=== PATIENT | female | born 1930 | race Caucasian/White ===

== ENCOUNTER 2016-07-06 16:41 | Inpatient (IN) | payer MEDICARE, BC ==
--- NOTE | 2016-07-06 17:03 | ED ---
GI Bleed HPI - General Stated complaint: GI Bleed Time Seen by Provider: 07/06/16 16:44 - History of Present Illness Initial comments: 85-year-old female patient presents as a transfer from [facility]. Patient presented to [facility] for complaints of weakness that had been progressively getting worse over the last week or 2. Patient states that she also noticed she was having dark stools for the last week. Patient states she did have an episode of dark stools a couple of years ago but it only lasted a couple of days. Patient denies ever having an evaluation for that, or having to receive blood transfusions. Patient states that she has been short of breath with this as well. Patient denies any abdominal pain, nausea, vomiting, constipation, or diarrhea. Patient denies any bright red blood per rectum. At [facility] patient was found to have a hemoglobin of 9.5, positive occult blood, and a lactic acid 3.5. INR is 5.07. - Related Data Home Medications Medication Instructions Recorded Confirmed Doxepin HCl [SINEquan] 50 mg PO HS 11/04/14 11/28/14 Lisinopril [Zestril] 2.5 mg PO DAILY 11/04/14 11/28/14 Metoprolol Tartrate [Lopressor] 50 mg PO TID 11/04/14 11/28/14 Nitroglycerin Sl Tabs [Nitrostat] 0.4 mg SL Q5M PRN 11/04/14 11/28/14 Simvastatin [Zocor] 40 mg PO QAM 11/04/14 11/28/14 Vitamin B Complex 1 tab PO DAILY@1200 11/04/14 11/28/14 Acetaminophen [Tylenol] 650 mg PO Q6H PRN 11/28/14 11/28/14 Previous Rx's Medication Instructions Recorded Dabigatran [Pradaxa] 150 mg PO BID #60 cap 11/12/14 Folic Acid 1 mg PO DAILY@1200 #30 tab 11/12/14 Thiamine [Vitamin B-1] 100 mg PO DAILY@1200 #30 tab 11/12/14 Aspirin EC [Ecotrin Low Dose] 81 mg PO DAILY #30 tablet. 11/29/14 Bumetanide [BUMEX] 1 mg PO DAILY #30 tab 11/29/14 Allergies Allergy/AdvReac Type Severity Reaction Status Date / Time Penicillins AdvReac Swelling Verified 07/06/16 16:53 Review of Systems ROS Statement: Those systems with pertinent positive or pertinent negative responses have been documented in the HPI. ROS Other: All systems not noted in ROS Statement are negative. Past Medical History Past Medical History: Atrial Flutter, Coronary Artery Disease (CAD), Chest Pain / Angina, Heart Failure, CVA/TIA, GERD/Reflux, Hearing Disorder / Deafness, Hyperlipidemia, Hypertension, Myocardial Infarction (AZ), Pulmonary Embolus (PE) Additional Past Medical History / Comment(s): 11/16/2012 [place] cath with stent, hard of hearing-wears bilat hearing aids, DIVERTICULOSIS, FALLS, UTI, RBBB, EPISTAXIS , FALLS,CKD. Last Myocardial Infarction Date:: 2012 History of Any Multi-Drug Resistant Organisms: None Reported Past Surgical History: Cholecystectomy, Heart Catheterization With Stent, Hysterectomy Additional Past Surgical History / Comment(s): IVC FILTER , JANNA CATARACTS. Past Anesthesia/Blood Transfusion Reactions: No Reported Reaction Date of Last Stent Placement:: 2012 Past Psychological History: No Psychological Hx Reported Additional Psychological History / Comment(s): PT IS ALERT AND ORIENTATED X3. LIVES WITH DAUGHTER. PT AMBULATES USING WALKER AND DAUGHTER ASSISTS PT WITH SHOWERS. 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 Smoking Status: Former smoker Past Alcohol Use History: None Reported Additional Past Alcohol Use History / Comment(s): STARTED SMOKING AT AGE 23 SMOKED 1PPD , QUIT MAY-1999. Past Drug Use History: None Reported - Past Family History Father Additional Family Medical History / Comment(s): heart issues Mother Additional Family Medical History / Comment(s): unknown Brother(s) Additional Family Medical History / Comment(s): heart surgery Daughter(s) History Unknown: Yes Family Medical History: No Reported History Son(s) Family Medical History: Diabetes Mellitus Course Vital Signs 07/06/16 16:53 Temperature 96.8 F L Pulse Rate 98 Respiratory 16 Rate Blood Pressure 122/64 O2 Sat by Pulse 99 Oximetry Medical Decision Making - Medical Decision Making 85-year-old female patient presented to emergency as a transfer from [facility] for GI bleed. Patient was found to have a positive occult blood , hemoglobin of 9.5, INR 5.07. CT report reviewed from [facility] which revealed diverticulosis without diverticulitis. Labs were reviewed. Repeat CBC and lactic acid were obtained and revealed a hemoglobin of 8.5 and lactic of 1.3. She'll be admitted for further evaluation. - Lab Data Result diagrams: 07/06/16 17:10 Lab Results 07/06/16 07/06/16 Range/Units 17:10 17:10 WBC 10.4 (3.8-10.6) k/uL RBC 2.64 L (3.80-5.40) m/uL Hgb 8.5 L (11.4-16.0) gm/dL Hct 26.4 L (34.0-46.0) % MCV 100.1 H (80.0-100.0) fL MCH 32.1 (25.0-35.0) pg MCHC 32.1 (31.0-37.0) g/dL RDW 15.6 H (11.5-15.5) % Plt Count 214 (150-450) k/uL Neutrophils % 86 % Lymphocytes % 9 % Monocytes % 3 % Eosinophils % 0 % Basophils % 0 % Neutrophils # 8.9 H (1.3-7.7) k/uL Lymphocytes # 0.9 L (1.0-4.8) k/uL Monocytes # 0.3 (0-1.0) k/uL Eosinophils # 0.0 (0-0.7) k/uL Basophils # 0.0 (0-0.2) k/uL Macrocytosis Slight Plasma Lactic Acid Quan 1.3 (0.7-2.0) mmol/L Disposition Clinical Impression: GI bleed Disposition: ADMITTED IP TO THIS [facility] Condition: Fair Decision to Admit Reason: Admit from EC Decision Date: 07/06/16 Decision Time: 17:59
[2016-07-06 17:22] LABS: Basophils % (A) 0 %; CHCM 32.2; Eosinophils % (A) 0 %; HCT 26.4 % (34.0-46.0); HDW 2.92; HGB 8.5 gm/dL (11.4-16.0); Luc # (Auto) 0.17; Luc % (Auto) 2; Lymphocytes # (A) 0.9 k/uL (1.0-4.8); Lymphocytes % (A) 9 %; MCH 32.1 pg (25.0-35.0); MCHC 32.1 g/dL (31.0-37.0); MCV 100.1 fL (80.0-100.0); Macrocytosis Slight; Mean Platelet Volume 9.2; Monocytes # (A) 0.3 k/uL (0-1.0); Monocytes % (A) 3 %; Neutrophils # (A) 8.9 k/uL (1.3-7.7); Neutrophils % (A) 86 %; RBC 2.64 m/uL (3.80-5.40); RDW 15.6 % (11.5-15.5); WBC 10.4 k/uL (3.8-10.6)
[2016-07-06] MEDS ORDERED: ONDANSETRON 4 MG/2 ML VIAL IVP STA (17:36)
[2016-07-06] MEDS ORDERED: MORPHINE SULFATE 4 MG/ML SYRINGE IVP STA (17:36)
[2016-07-06] MEDS ORDERED: ONDANSETRON 4 MG/2 ML VIAL IVP PRN (17:59)
[2016-07-06] MEDS ORDERED: NALOXONE 0.4 MG/ML 1 ML VIAL IV PRN (17:59)
[2016-07-06 19:12] LABS: Basophils % (A) 0 %; CH 31.6; CHCM 31.3; Eosinophils % (A) 0 %; HDW 2.96; HGB 8.4 gm/dL (11.4-16.0); Hypochromasia Slight; Luc # (Auto) 0.22; Luc % (Auto) 2; Lymphocytes # (A) 1.2 k/uL (1.0-4.8); Lymphocytes % (A) 11 %; MCH 31.8 pg (25.0-35.0); MCHC 31.3 g/dL (31.0-37.0); MCV 101.6 fL (80.0-100.0); Macrocytosis Slight; Mean Platelet Volume 8.9; Monocytes # (A) 0.4 k/uL (0-1.0); Monocytes % (A) 3 %; Neutrophils % (A) 83 %; RBC 2.65 m/uL (3.80-5.40); RDW 15.7 % (11.5-15.5); WBC 10.8 k/uL (3.8-10.6); WBC (Perox) 11.63
[2016-07-06 20:04] VITALS: BMI 24.3
[2016-07-06] MEDS: MORPHINE SULFATE 4 MG/ML SYRINGE IV PRN (20:58)
[2016-07-06] MEDS: SODIUM CHLORIDE 0.9% 1,000 ML IV SCH (22:29)
[2016-07-06] MEDS ORDERED: ACETAMINOPHEN TAB 500 MG TAB PO PRN (23:12)
[2016-07-06] MEDS ORDERED: ALPRAZolam 0.25 MG TAB PO PRN (23:12)
[2016-07-07 01:34] LABS: Anisocytosis Slight; Basophils % (A) 0 %; CH 31.6; CHCM 31.6; Eosinophils % (A) 0 %; HCT 23.2 % (34.0-46.0); HDW 2.99; HGB 7.3 gm/dL (11.4-16.0); Hypochromasia Slight; Luc # (Auto) 0.18; Luc % (Auto) 2; Lymphocytes # (A) 1.1 k/uL (1.0-4.8); Lymphocytes % (A) 13 %; MCH 31.9 pg (25.0-35.0); MCHC 31.6 g/dL (31.0-37.0); Macrocytosis Slight; Mean Platelet Volume 8.7; Monocytes # (A) 0.6 k/uL (0-1.0); Monocytes % (A) 7 %; Neutrophils # (A) 6.4 k/uL (1.3-7.7); Neutrophils % (A) 77 %; RDW 16.2 % (11.5-15.5); WBC 8.3 k/uL (3.8-10.6); WBC (Perox) 8.46
[2016-07-07] MEDS: MORPHINE SULFATE 4 MG/ML SYRINGE IV PRN ×2 (03:41→10:46)
[2016-07-07 03:46] LABS: Appearance,Urine Clear (Clear); Bacteria,Urine Many /hpf; Bilirubin,Urine Negative (Negative); Glucose,Urine (UA) Negative (Negative); Ketones,Urine Negative (Negative); Leukocyte Esterase,Urine Small (Negative); Mucus,Urine Many /hpf; Nitrite,Urine Positive (Negative); PH, Urine 5.5 (5.0-8.0); Particle Count 3602; Protein,Urine Negative (Negative); Specific Gravity,Urine 1.013 (1.001-1.035); UA Billing (MACRO vs. MICRO) MICRO; Urobilinogen,Urine <2.0 mg/dL (<2.0); WBC,Urine 8 /hpf (0-5)
[2016-07-07] MEDS: PANTOPRAZOLE 40 MG/10 ML VIAL IVP SCH (07:58)
[2016-07-07] MEDS: SODIUM CHLORIDE 0.9% 1,000 ML IV SCH (08:05)
--- NOTE | 2016-07-07 08:18 | XR ---
EXAMINATION TYPE: XR chest 1V portable DATE OF EXAM: 07/07/2016 8:10 AM HISTORY: chf. REFERENCE: Previous study dated 11/29/2014. FINDINGS: The heart is enlarged. The lungs are overinflated. There is chronic interstitial change. A definite superimposed pneumonia is not seen. IMPRESSION: 1. COPD. 2. CARDIOMEGALY. 3. CHRONIC INTERSTITIAL FIBROSIS.
[2016-07-07 08:46] LABS: Anisocytosis Slight; Basophils # (A) 0.1 k/uL (0-0.2); Basophils % (A) 0 %; CH 31.6; Eosinophils % (A) 0 %; HCT 22.4 % (34.0-46.0); Hypochromasia Moderate; Luc # (Auto) 0.31; Luc % (Auto) 3; Lymphocytes # (A) 2.3 k/uL (1.0-4.8); Lymphocytes % (A) 21 %; MCH 31.6 pg (25.0-35.0); MCHC 30.8 g/dL (31.0-37.0); MCV 102.7 fL (80.0-100.0); Macrocytosis Moderate; Mean Platelet Volume 8.8; Monocytes # (A) 0.8 k/uL (0-1.0); Monocytes % (A) 7 %; Neutrophils # (A) 7.7 k/uL (1.3-7.7); Neutrophils % (A) 69 %; RBC 2.18 m/uL (3.80-5.40); RDW 16.7 % (11.5-15.5); WBC 11.1 k/uL (3.8-10.6); WBC (Perox) 11.99
[2016-07-07 08:55] LABS: Calcium 8.4 mg/dL (8.4-10.2); HGB 6.9 gm/dL (11.4-16.0); Potassium 4.1 mmol/L (3.5-5.1)
[2016-07-07] MEDS ORDERED: FUROSEMIDE 10 MG/ML 2 ML VIAL IV ONE (10:57)
--- NOTE | 2016-07-07 11:03 | HP ---
DATE OF ADMISSION: 07/06/2016 CHIEF COMPLAINT: Gastrointestinal bleed. HISTORY OF PRESENT ILLNESS: This 85 -year-old woman with a past medical history of multiple medical problems including atrial flutter, coronary artery disease, history of chest pain, history of CHF, history of CVA, TIA, history of GERD, history of hearing disorder, deafness, hypertension, hyperlipidemia, history of myocardial infarction, history of pulmonary embolism, being followed by Dr. Sheldon in the outpatient setting, apparently living with daughter. Patient apparently has lower GI bleeding for the last one week. Patient presented to [facility] with GI bleeding. The patient was noted to have black tarry stools. CT scan showed only diverticulosis. continue bleed. The patient was sent to [facility] and admitted for further evaluation and treatment. Two hemoglobin values 8.5 and 8.4. There is no history of fever, rigors or chills. No history of headache, loss of consciousness. No abdominal pain, nausea, vomiting, diarrhea, hematochezia at this time. PAST MEDICAL HISTORY: History of atrial flutter, history of coronary artery disease, history of CHF, CVA, TIA, GERD , hearing disorder, deafness, hypertension, hyperlipidemia, history of myocardial infarction, history of pulmonary embolism. MEDICATIONS PRIOR TO ADMISSION: 1. Vitamin B complex 100 mg p.o. daily. 2. Thiamine 100 mg p.o. daily. 3. Simvastatin 40 mg in the morning. . 4. Nitro 0.4 sublingual p.r.n. 5. Metoprolol 50 mg p.o. t.i.d. 6. Zestril 2.5 mg p.o. daily. 7. Folic acid 1 mg daily. 8. Doxepin 50 mg q.h.s. 9. Pradaxa 150 mg p.o. b.i.d. 10. Bumex 1 mg p.o. daily. 11. Aspirin 81 mg. 12. Tylenol 650 q.6 p.r.n. ALLERGIES: PENICILLIN. FAMILY HISTORY: History of heart disease in the family. SOCIAL HISTORY: Previous history of smoking. No history of current smoking or alcohol intake. REVIEW OF SYSTEMS: ENT: Diminished vision, diminished hearing. CARDIOVASCULAR: No angina or palpitations. RESPIRATORY: No cough or hemoptysis. GI: As mentioned earlier. : No dysuria, or retention. CENTRAL NERVOUS SYSTEM: As mentioned earlier. allergy/immunology: No asthma or hayfever. MUSCULOSKELETAL: As mentioned earlier. HEMATOLOGY/ONCOLOGY: No history of anemia. ENDOCRINE: No history of diabetes or hypothyroidism. CONSTITUTIONAL: As mentioned earlier. DERMATOLOGY: Negative. RHEUMATOLOGY: negative. PSYCHIATRY: As mentioned earlier. PHYSICAL EXAMINATION: Patient is alert and oriented x3. Pulse is 103, blood pressure 107/66, respirations 17, temperature 97.5, pulse ox 95% on 3 L. HEENT: Conjunctivae pale. Oral mucosa moist. NECK: No jugular venous distention. No carotid bruit. No lymph node enlargement. CARDIOVASCULAR: S1, S2 muffled. No S3, no S4. RESPIRATORY: Breath sounds diminished in the bases. A few rhonchi. No crackles. ABDOMEN: Soft, nontender. No mass palpable. LEGS: No edema. No swelling. CENTRAL NERVOUS SYSTEM: Higher functions as mentioned earlier. Moves all four limbs. No focal motor or sensory deficits. LYMPHATICS: No lymph nodes palpable in the neck, axillae or groin. SKIN: No ulcer, rash or bleeding. LABS: WBC 10.2, hemoglobin 8.7, MCV 101.6. ASSESSMENT: 1. Acute lower gastrointestinal bleeding with acute blood loss anemia. Possible secondary to diverticulosis. 2. Congestive heart failure with chronic systolic dysfunction, ejection fraction 40% to 45%. 3. Increased MCV. 4. Increased WBC. 5. History of atrial flutter. 6. Coronary artery disease history. 7. History of congestive heart failure. 8. History of cerebrovascular accident, transient ischemic attack. 9. History of gastroesophageal reflux disease. 10. Hard of hearing. 11. Hypertension. 12. Hyperlipidemia. 13. History of myocardial infarction. 14. History of pulmonary embolism. 15. History of coronary artery disease and stent. 16. History of diverticulosis. 17. History of epistaxis. 18. Right bundle branch block on the EKG. 19. History of cataracts. 20. IVC filter. 21. Gait dysfunction. 22. FULL CODE. RECOMMENDATIONS AND DISCUSSION: In this 85-year-old woman who presented with multiple complex medical issues, we will monitor the patient closely. Continue with the current medications. Continue symptomatic treatment. Otherwise, at this time, I would recommend we will monitor hemoglobin closely, hold antiplatelet and Pradaxa. Otherwise, I would also recommend a cardiology consultation and Hematology consultation also. Other than that, gastroenterology will be consulted for evaluation with possible endoscopy. Guarded prognosis because of multiple complex medical issues. Further recommendations to follow. A copy of dictation being forwarded to Dr. Sheldon who is the primary care physician. We will resume the other the home medications as well. JUDY
[2016-07-07 15:05] LABS: Anisocytosis Slight; Basophils % (A) 0 %; CH 31.2; CHCM 32.5; Eosinophils % (A) 0 %; HCT 29.8 % (34.0-46.0); HDW 3.51; Hypochromasia Slight; Luc # (Auto) 0.13; Luc % (Auto) 1; Lymphocytes # (A) 0.9 k/uL (1.0-4.8); Lymphocytes % (A) 8 %; MCH 32.2 pg (25.0-35.0); MCHC 33.2 g/dL (31.0-37.0); Macrocytosis Slight; Monocytes # (A) 0.5 k/uL (0-1.0); Monocytes % (A) 5 %; Neutrophils # (A) 9.5 k/uL (1.3-7.7); Neutrophils % (A) 86 %; Poikilocytosis Slight; RBC 3.07 m/uL (3.80-5.40); RDW 16.7 % (11.5-15.5); WBC 11.1 k/uL (3.8-10.6); WBC (Perox) 10.58
[2016-07-07 15:16] LABS: HGB 9.9 gm/dL (11.4-16.0)
[2016-07-07] MEDS ORDERED: LEVOFLOXACIN 500MG-D5W PMX 500 MG in DEXTROSE/WATER 1 100ML.BAG IVPB SCH (17:00)
--- NOTE | 2016-07-07 17:00 | P.CONS ---
History of Present Illness - Reason for Consult Consult date: 07/07/16 GI bleeding, on anticoagulation for PE Requesting physician: Richard Hollins - Chief Complaint progressive weakness and dark stool, transfer, coagulopathy - History of Present Illness Ms. Condon is a pleasant female initially seen in consult at [facility] . She was transferred from [facility] with c/o not feeling well for 2-3 days, ESTEVAN and chest discomfort. VQ scan was read as high probability for PE in the right lung, BLE doppler negative for DVT. Pt was already on Pradaxa for a-fib. She was seen by Pulmonary and IM and IVC filter was recommended due to concerns about failure of anticoagulation. The pt was actually taking half the recommended full anticoagulant dose ast the time of the PE so Dr. Chris recommended increase to treatment dose Pradaxa 150 mg PO BID. There was no provoking factor so CT AP was done to rule out occult malignancy as underlying cause, follow up US was done for a concerning left renal mass that did not appear to be a simple cyst, hypercoag work up was negative. The pt was seen for her 1st OV on 12/06/14. She was referred to Urology for renal mass and advised to f/u wp with PCP for monitoring of renal function while on predaxa. Pt transferred for [facility] where she was seen for progressive weakness x 1-2 weeks and dark stools, hemocult was positive and Hgb was 8.5 on admit, dropped to 6.8, pt is s/p 2 units of PRBCs with Hgb 9.9. Pt denied fevers, any other visible bleeding, no nausea, vomiting, abd pain, cramping. Review of Systems ROS unobtainable: due to mental status All systems: negative Constitutional: Reports as per HPI Past Medical History Past Medical History: Atrial Flutter, Coronary Artery Disease (CAD), Chest Pain / Angina, Heart Failure, CVA/TIA, GERD/Reflux, Hearing Disorder / Deafness, Hyperlipidemia, Hypertension, Myocardial Infarction (AZ), Pulmonary Embolus (PE) Additional Past Medical History / Comment(s): 11/16/2012 [place] cath with stent, hard of hearing-wears bilat hearing aids, DIVERTICULOSIS, FALLS, UTI, RBBB, EPISTAXIS , FALLS,CKD. Last Myocardial Infarction Date:: 2012 History of Any Multi-Drug Resistant Organisms: None Reported Past Surgical History: Cholecystectomy, Heart Catheterization With Stent, Hysterectomy Additional Past Surgical History / Comment(s): IVC FILTER , JANNA CATARACTS. Past Anesthesia/Blood Transfusion Reactions: No Reported Reaction Date of Last Stent Placement:: 2012 Past Psychological History: No Psychological Hx Reported Additional Psychological History / Comment(s): PT IS ALERT AND ORIENTATED X3. LIVES WITH DAUGHTER. PT AMBULATES USING WALKER AND DAUGHTER ASSISTS PT WITH SHOWERS. 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 Smoking Status: Former smoker Past Alcohol Use History: None Reported Additional Past Alcohol Use History / Comment(s): STARTED SMOKING AT AGE 23 SMOKED 1PPD , QUIT MAY-1999. Past Drug Use History: None Reported - Past Family History Father Additional Family Medical History / Comment(s): heart issues Mother Additional Family Medical History / Comment(s): unknown Brother(s) Additional Family Medical History / Comment(s): heart surgery Daughter(s) History Unknown: Yes Family Medical History: No Reported History Son(s) Family Medical History: Diabetes Mellitus Medications and Allergies Home Medications Medication Instructions Recorded Confirmed Type Doxepin HCl [SINEquan] 50 mg PO HS 11/04/14 07/07/16 History Lisinopril [Zestril] 2.5 mg PO DAILY 11/04/14 07/07/16 History Metoprolol Tartrate [Lopressor] 75 mg PO DAILY 11/04/14 07/07/16 History Nitroglycerin Sl Tabs [Nitrostat] 0.4 mg SUBLINGUAL Q5M PRN 11/04/14 07/07/16 History Vitamin B Complex 1 cap PO DAILY 11/04/14 07/07/16 History Acetaminophen Tab [Tylenol Tab] 500 mg PO Q6H PRN 07/07/16 07/07/16 History Ascorbic Acid [Vitamin C] 500 mg PO DAILY 07/07/16 07/07/16 History Cholecalciferol [Vitamin D3] 1,000 unit PO DAILY 07/07/16 07/07/16 History Folic Acid 1 mg PO DAILY 07/07/16 07/07/16 History Metoprolol Tartrate [Lopressor] 25 mg PO HS 07/07/16 07/07/16 History Multivitamins, Thera [Multivitamin 1 tab PO DAILY 07/07/16 07/07/16 History (formulary)] Ranitidine HCl [Zantac] 150 mg PO BID 07/07/16 07/07/16 History Vitamin E (Dl,Tocopheryl Acet) 400 unit PO DAILY 07/07/16 07/07/16 History [Vitamin E] Allergies Allergy/AdvReac Type Severity Reaction Status Date / Time Penicillins AdvReac Swelling Verified 07/06/16 16:53 Physical Exam Vitals: Vital Signs Temp Pulse Pulse Resp BP BP Pulse Ox 07/07/16 16:00 105 H 16 07/07/16 15:00 97.4 F L 105 H 16 109/74 100 07/07/16 13:29 9705 F H 101 H 18 101/56 07/07/16 13:27 97.6 F 101 H 18 115/72 07/07/16 13:26 97.7 F 105 H 18 115/61 07/07/16 12:08 97.5 F L 104 H 18 110/59 07/07/16 11:50 97.3 F L 97 18 117/61 97 07/07/16 11:24 97.5 F L 103 H 16 93/54 07/07/16 11:23 97.5 F L 103 H 18 93/54 07/07/16 10:31 97.5 F L 101 H 20 112/53 07/07/16 09:58 97.6 F 94 101/55 07/07/16 09:52 97.5 F L 07/07/16 09:44 102 H 18 106/54 07/07/16 08:00 16 07/07/16 07:00 97.5 F L 105 H 18 86/57 93 L 07/07/16 00:00 99 16 07/06/16 22:54 97.7 F 99 16 99/59 100 07/06/16 19:28 97.5 F L 103 H 17 107/66 100 07/06/16 18:28 96.8 F L 98 18 106/71 100 Intake and Output 07/07/16 07/07/16 07/07/16 06:59 14:59 22:59 Intake Total 820 Balance 820 Intake: Oral 200 Blood Product 620 Rc As-1 Unit 310 [id number] As-1 Unit 310 [id number] Other: Voiding Method Toilet Toilet Toilet # Voids 2 1 Weight 66.224 kg 66.224 kg 66.224 kg Patient Weight 07/08/16 06:59 Weight 66.224 kg - Constitutional General appearance: average body habitus, cooperative, no acute distress - EENT Eyes: anicteric sclerae ENT: normal oropharynx - Neck Neck: no lymphadenopathy - Respiratory Respiratory: bilateral: CTA - Cardiovascular Heart sounds: normal: S1, S2 leg Peripheral Edema: bilateral: 1+ - Gastrointestinal General gastrointestinal: no absent bowel sounds, no decreased bowel sounds, no distended, no hepatomegaly, no hyperactive bowel sounds, normal bowel sounds, no organomegaly, no rigid, no scaphoid, soft, no splenomegaly, no tenderness, no umbilical hernia, no ventral hernia - Integumentary Integumentary: pale - Neurologic Neurologic: CNII-XII intact - Musculoskeletal Musculoskeletal: generalized weakness, strength equal bilaterally - Psychiatric Pt is having some trouble remembering a few recent events Psychiatric: A&O x's 3, appropriate affect, intact judgment & insight Results CBC & Chem 7: 07/07/16 14:36 07/07/16 08:04 Labs: Abnormal Lab Results - Last 24 Hours (Table) 07/06/16 07/06/16 07/07/16 Range/Units 19:00 19:00 01:15 WBC 10.8 H (3.8-10.6) k/uL RBC 2.65 L 2.30 L (3.80-5.40) m/uL Hgb 8.4 L 7.3 L (11.4-16.0) gm/dL Hct 27.0 L 23.2 L (34.0-46.0) % MCV 101.6 H 101.0 H (80.0-100.0) fL MCHC (31.0-37.0) g/dL RDW 15.7 H 16.2 H (11.5-15.5) % Neutrophils # 9.0 H (1.3-7.7) k/uL Lymphocytes # (1.0-4.8) k/uL Chloride (98-107) mmol/L Carbon Dioxide (22-30) mmol/L BUN (7-17) mg/dL Creatinine (0.52-1.04) mg/dL Glucose (74-99) mg/dL Urine Nitrite (Negative) Ur Leukocyte Esterase (Negative) Urine WBC (0-5) /hpf Urine Bacteria (None) /hpf Urine Mucus (None) /hpf Crossmatch See Detail 07/07/16 07/07/16 07/07/16 Range/Units 03:25 08:04 08:04 WBC 11.1 H (3.8-10.6) k/uL RBC 2.18 L (3.80-5.40) m/uL Hgb 6.9 L* (11.4-16.0) gm/dL Hct 22.4 L (34.0-46.0) % MCV 102.7 H (80.0-100.0) fL MCHC 30.8 L (31.0-37.0) g/dL RDW 16.7 H (11.5-15.5) % Neutrophils # (1.3-7.7) k/uL Lymphocytes # (1.0-4.8) k/uL Chloride 112 H (98-107) mmol/L Carbon Dioxide 18 L (22-30) mmol/L BUN 58 H (7-17) mg/dL Creatinine 1.16 H (0.52-1.04) mg/dL Glucose 113 H (74-99) mg/dL Urine Nitrite Positive H (Negative) Ur Leukocyte Esterase Small H (Negative) Urine WBC 8 H (0-5) /hpf Urine Bacteria Many H (None) /hpf Urine Mucus Many H (None) /hpf Crossmatch 07/07/16 Range/Units 14:36 WBC 11.1 H (3.8-10.6) k/uL RBC 3.07 L (3.80-5.40) m/uL Hgb 9.9 L D (11.4-16.0) gm/dL Hct 29.8 L (34.0-46.0) % MCV (80.0-100.0) fL MCHC (31.0-37.0) g/dL RDW 16.7 H (11.5-15.5) % Neutrophils # 9.5 H (1.3-7.7) k/uL Lymphocytes # 0.9 L (1.0-4.8) k/uL Chloride (98-107) mmol/L Carbon Dioxide (22-30) mmol/L BUN (7-17) mg/dL Creatinine (0.52-1.04) mg/dL Glucose (74-99) mg/dL Urine Nitrite (Negative) Ur Leukocyte Esterase (Negative) Urine WBC (0-5) /hpf Urine Bacteria (None) /hpf Urine Mucus (None) /hpf Crossmatch Assessment and Plan (1) GI bleed Narrative/Plan: Pt has not taken pradaxa for more then 24 hours now, the drug effects, it would be anticipated, have been metabolized out of pt system. Transfuse PRBCs with H& H 6 hours after transfusion. If hgb drops again in the next 24 hours endoscopic evaluation would be appropriate. CBC in AM. Hold pradaxa. With GI bleeding literature recommends at least 6mo without anticoagulation. Pt did have IVC filter placed about September of last year but collateral circulation has quite likely reduced the effectiveness of the device. Hematology and Cardiology will have to discuss the case for plan of care re: anticoagulation for a-fib, PE. Pt does not recall f/u with Urology, will look into this. Hold all ASA, NSAIDs, anticoagulants for now Status: Acute (2) Pulmonary embolism Narrative/Plan: Status: Chronic
[2016-07-07] MEDS: METOPROLOL TARTRATE 25 MG TAB PO SCH (17:02)
--- NOTE | 2016-07-07 17:49 | CONS ---
DATE OF CONSULTATION: Mrs. Condon is an 85-year-old female who was transferred from [facility] because of GI bleeding. I am not able to obtain a very good history from the patient, but she was in the hospital in October of 2014 and has a history of coronary artery disease and prior percutaneous revascularization. She also has a history of paroxysmal atrial fibrillation. She was anticoagulated and has been complaining of progressive dyspnea and progressive weakness. Because of that, she was transferred to the hospital. She denies any symptoms of chest pain. She denies any dizziness or palpitation. She denies any PND, orthopnea or peripheral edema. In 2015 her left ventricular systolic function was moderately impaired with an ejection fraction of 40% to 45%. She has also a history of pulmonary embolism in 2015 and [place] filter placement. 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 Reviewing the old EKG in 2014, she was in atrial fibrillation, although the EKG that is available to me upon transfer from [facility] shows a sinus mechanism. Her coronary risk factors are positive for hypertension. Her lipid profile is not available to me. She is nondiabetic. Her medications at home include: 1. Aspirin 81 mg daily. 2. Bumex 1 mg daily. 3. She was on Pradaxa 150 mg twice a day. 4. Sinequan. 5. Zestril 2.5 mg daily. 6. Metoprolol tartrate 75 in the morning and 25 in the afternoon. 7. Ranitidine. 8. Vitamins. REVIEW OF SYSTEMS: RESPIRATORY SYSTEM: She has dyspnea on exertion. No recent wheezing or cough. GI SYSTEM: She had the GI bleeding as noted. No nausea or vomiting. SYSTEM: No dysuria or hematuria. NERVOUS SYSTEM: No seizure. PHYSICAL EXAMINATION: An 85-year-old female, alert, mildly confused. Blood pressure 110/50 with a heart rate in the 90s. HEAD: Normocephalic. EYES: Sclerae anicteric. NECK: Good carotid upstroke. No bruit. LUNGS: No wheezes or rales. HEART: S1, S2. No S3, with a systolic ejection murmur at the base, ejection type, 2/6. No diastolic murmur. No rub. ABDOMEN: Soft, nontender. Positive bowel sounds. No organomegaly. EXTREMITIES: No edema. Intact distal pulses. Lab data revealed hemoglobin of 6.9 yesterday. It was 8.5. Her BUN and creatinine were 58 and 1.6. As noted, her EKG that is available to me from [place] revealed a sinus mechanism, rate of 100, with a right bundle branch block, left axis deviation, evidence suggestive of prior inferior myocardial infarction. IMPRESSION: 1. Gastrointestinal bleeding with severe anemia. Patient has been anticoagulated. 2. History of coronary artery disease and prior percutaneous revascularization. 3. Paroxysmal atrial fibrillation. 4. History of pulmonary embolism and L[place] filter placement in 2014. 5. History of hypertension. RECOMMENDATIONS: From the cardiac standpoint, I will reinitiate the beta kathi. I will obtain an echocardiogram with Doppler. Her anticoagulation will be stopped at this time. Depending on her progress, further recommendations will be made. Thank you for this consult. Will follow with you.
[2016-07-07 18:32] LABS: Anisocytosis Slight; Basophils # (A) 0.2 k/uL (0-0.2); Basophils % (A) 2 %; CH 31.9; CHCM 33.3; Eosinophils % (A) 0 %; HCT 28.3 % (34.0-46.0); HDW 3.72; HGB 9.4 gm/dL (11.4-16.0); Hypochromasia Slight; Luc # (Auto) 0.16; Luc % (Auto) 1; Lymphocytes # (A) 0.8 k/uL (1.0-4.8); Lymphocytes % (A) 6 %; MCH 32.2 pg (25.0-35.0); MCHC 33.2 g/dL (31.0-37.0); MCV 96.9 fL (80.0-100.0); Macrocytosis Slight; Mean Platelet Volume 8.6; Monocytes # (A) 0.6 k/uL (0-1.0); Monocytes % (A) 5 %; Neutrophils # (A) 10.4 k/uL (1.3-7.7); Neutrophils % (A) 86 %; Poikilocytosis Slight; RBC 2.93 m/uL (3.80-5.40); RDW 17.2 % (11.5-15.5); WBC 12.2 k/uL (3.8-10.6); WBC (Perox) 12.64
[2016-07-07] MEDS: MELATONIN 3 MG TABLET PO SCH (21:05)
--- NOTE | 2016-07-07 21:28 | PN ---
DATE OF SERVICE: 07/07/2016 This 85-year-old woman who was admitted with lower GI bleeding had melenic stools, also. The patient is also complaining of weakness and tiredness. Hemoglobin has gone down to 6.9 from 7.3 yesterday. Transfusion arranged. Creatinine is 1.16. Multiple consultants are following the patient. The patient is also reported to have a mild UTI. Past medical history reviewed. REVIEW OF SYSTEMS: CARDIOVASCULAR: No angina, palpitations. RESPIRATORY SYSTEM: As mentioned earlier. GI: As mentioned earlier. : No dysuria. NERVOUS SYSTEM: No numbness, weakness. Current medications are reviewed and include: 1. Tylenol 500 q.6 p.r.n. 2. Xanax 0.25 mg. 3. Melatonin. 4. Lopressor. 5. Morphine sulfate q.2 p.r.n. 6. Narcan p.r.n. 7. Zofran. 8. Protonix. PHYSICAL EXAMINATION: Patient is alert and oriented x2. Pulse 101, blood pressure 101/56, respiration 18, temperature 97.4, pulse ox 100% on 3 L. HEENT: Conjunctivae normal. NECK: No jugular venous distention. CARDIOVASCULAR SYSTEM: S1, S2 muffled. RESPIRATORY SYSTEM: Breath sounds diminished at the bases. A few scattered rhonchi. No crackles. ABDOMEN: Soft, nontender. No mass palpable. LEGS: No edema. No swelling. NERVOUS SYSTEM: Higher functions as mentioned earlier. Moves all 4 limbs. No focal motor or sensory deficit. LYMPHATICS: No lymph node palpable in neck, axillae or groin. SKIN: No ulcer, rash, bleeding. LABS: WBC 11.1, hemoglobin 9.9. ASSESSMENT: 1. Acute lower gastrointestinal bleeding with acute blood loss anemia, possibly secondary to diverticulosis and diverticular bleed, status post blood transfusion. 2. Congestive heart failure with chronic systolic dysfunction, ejection fraction 40% to 45%. 3. Increased mean corpuscular volume. 4. Increased white count. 5. History of atrial flutter. 6. History of coronary artery disease. 7. History of congestive heart failure; ejection fraction unknown. 8. History of cerebrovascular accident, transient ischemic attack. 9. History of gastroesophageal reflux disease. 10. History of hard of hearing. 11. Hypertension, essential. 12. Hyperlipidemia. 13. History of myocardial infarction. 14. History of pulmonary embolus. 15. History of coronary artery disease, stent. 16. History of diverticulosis. 17. History of epistaxis. 18. Right bundle branch block on EKG. 19. History of cataracts. 20. IVC filter. 21. Gait dysfunction. 22. FULL CODE. RECOMMENDATIONS AND DISCUSSION: I recommend to continue with the current medications, continue with the monitoring, symptomatic treatment. Otherwise, at this time I would recommend repeat labs and monitor hemoglobin closely. Dr. Guerrero has been consulted and Cardiology. Dr. Chris also has been consulted because of the past medical history. Prognosis guarded. Further recommendations to follow.
[2016-07-08] MEDS: METOPROLOL TARTRATE 25 MG TAB PO SCH ×3 (01:33→21:24)
[2016-07-08] MEDS ORDERED: PROPOFOL 10 MG/ML 20 ML VIAL IV ONE (07:05)
[2016-07-08] MEDS ORDERED: SODIUM CHLORIDE 0.9% 1,000 ML IV ONE (07:27)
--- NOTE | 2016-07-08 07:29 | P.PCN ---
Date of Procedure: 07/08/16 Procedure(s) Performed: BRIEF HISTORY: Patient is a 85-year-old, pleasant, white female, admitted to the hospital with black tarry stools of 1 week duration. She dropped her hemoglobin to 6.5 requiring 2 units of PRBC transfusion yesterday. She has been on Pradaxa for atrial flutter patient has been on hold For 2 days'. She is scheduled for an upper endoscopy to evaluate source of GI bleed. PROCEDURE PERFORMED: Esophagogastroduodenoscopy with cautery . PREOPERATIVE DIAGNOSIS: [Acute GI bleed IV sedation per anesthesia. PROCEDURE: After informed consent was obtained, the patient was brought into the endoscopy unit. IV conscious sedation was administered by Anesthesia under continuous monitoring. Initially the Olympus GIF-140 video endoscope was inserted into the mouth. Esophagus intubated without any difficulty. It was gradually advanced into the stomach and duodenum and carefully examined. The bulb and the second part of the duodenum had fresh blood identified. 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 At this time cautery was performed using a gold probe was performed at the site of oozing with good hemostasis. The rest of the duodenum appeared normal. The scope at this time was withdrawn to the stomach, adequately insufflated with air, and upon careful examination, mucosa of the antrum, body, cardia and the fundus appeared normal. The scope was then withdrawn into the esophagus. small hiatal hernia noted. The GE junction was located at 39 cm from the incisors. There were 2 superficial erosions noted at the GE junction consistent with LA grade B reflux esophagitis. The rest of the esophagus appeared normal and the patient tolerated the procedure well. IMPRESSION: 1. 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 LA grade B reflux esophagitis RECOMMENDATIONS: The findings of this examination were discussed with the patient. At this time she'll be continued on Protonix 40 mg every 12 hours. Advance to full liquid diet and follow CBC on a daily basis. Continue to hold pradaxa for 1 week.
--- NOTE | 2016-07-08 08:14 | CONS ---
DATE OF CONSULTATION: 07/07/2016 REASON FOR CONSULTATION: ( ). HISTORY OF PRESENT ILLNESS: This 85 -year-old ( ) [facility], the patient ( ) when she presented to the hospital with black tarry stools over the last one week duration. The patient stated that did have ( ) for the last one week at least once or twice daily. ( ) at [facility], she was subsequently transferred to [facility] ( ). The patient apparently ( ) breathing ( ). She has ( ) which she ( ) her last dose was about 2 days ago. Since being here, she did not have any further episodes of bleeding. She denies any abdominal pain, ( ) of history of peptic ulcer disease in the past, denies any recent NSAID use. She did have CT of the abdomen, pelvis done that showed ( ). Her initial hemoglobin was 8.5, subsequently went down to 6.9. Currently ( ). Her past medical history significant for atrial flutter, coronary artery disease, congestive heart failure, previous ( ) in the past, ( ), hypertension, hyperlipidemia, history of ( ), pulmonary embolism. MEDICATIONS AT HOME: 1. Thiamine. 2. ( ). 3. Metoprolol. 4. Zestril. 5. Folic acid. 6. Doxepin. 7. Pradaxa. 8. Bumex. 9. Aspirin. 10. Tylenol. 11. Multivitamins. SOCIAL HISTORY: No history of smoking or alcohol use. FAMILY HISTORY: Unremarkable. ALLERGIES: PENICILLIN. REVIEW OF SYSTEMS: CARDIOPULMONARY: No chest pain or shortness of breath. GENITOURINARY: No dysuria or hematuria. MUSCULOSKELETAL: She complains of back pain. NEUROLOGY: Unremarkable. PSYCHIATRIC: Unremarkable. ENT: Vision unremarkable. HEMATOLOGY: Anemia. ENDOCRINE: Unremarkable. CONSTITUTIONAL: ( ). ( ) examination unremarkable. Conjunctivae pink. Sclerae anicteric. ( ) lesions. Neck no JVD or lymph node enlargement. ( ). Neurological she is alert and oriented times three. No focal deficits. ( ). ( ) hemoglobin BUN 46, creatinine 1.16 ( ) is within normal limits. IMPRESSION: Acute gastrointestinal bleed most likely upper in etiology. Patient has been having black tarry stools for the last one week duration. Initial hemoglobin was ( ), after receiving ( ). The patient is hemodynamically stable. She continues to have black, tarry stools for the last one week duration. She has been on Pradaxa for history of atrial flutter and her last dose was two days ago. RECOMMENDATIONS: 1. Continue IV Protonix 40 mg q.12 hours. 2. We will start her on a clear liquid diet today ( ) repeat upper endoscopy tomorrow ( ) we are dealing with upper gastrointestinal source of bleeding. Discussed with the patient risks, benefits and complications. She is agreeable to it. In the meantime, continue will follow the Pradaxa. We will follow the patient closely during her hospital stay. Thank you for this consultation.
[2016-07-08 08:27] LABS: Reticulocyte % 4.2 % (0.5-2.0)
[2016-07-08 08:30] LABS: Anisocytosis Slight; Basophils % (A) 0 %; CH 31.5; CHCM 32.4; Eosinophils % (A) 0 %; HCT 24.8 % (34.0-46.0); HDW 3.94; HGB 8.3 gm/dL (11.4-16.0); Hypochromasia Slight; Luc # (Auto) 0.22; Luc % (Auto) 2; Lymphocytes # (A) 1.3 k/uL (1.0-4.8); Lymphocytes % (A) 10 %; MCH 33.1 pg (25.0-35.0); MCHC 33.6 g/dL (31.0-37.0); MCV 98.7 fL (80.0-100.0); Macrocytosis Slight; Mean Platelet Volume 8.1; Monocytes # (A) 0.8 k/uL (0-1.0); Monocytes % (A) 7 %; Neutrophils % (A) 81 %; Poikilocytosis Slight; RBC 2.52 m/uL (3.80-5.40); RDW 18.7 % (11.5-15.5); WBC 12.4 k/uL (3.8-10.6); WBC (Perox) 12.83
[2016-07-08 08:45] LABS: Anion Gap 9 mmol/L; Blood Urea Nitrogen 52 mg/dL (7-17); Calcium 8.4 mg/dL (8.4-10.2); Carbon Dioxide 18 mmol/L (22-30); Chloride 115 mmol/L (98-107); Glucose 114 mg/dL (74-99); Non-African American GFR(MDRD) 52 (>60 ml/min/1.73 sqM); Potassium 4.7 mmol/L (3.5-5.1); Sodium 142 mmol/L (137-145)
[2016-07-08] MEDS: SODIUM CHLORIDE 0.9% 1,000 ML IV SCH ×3 (09:33→09:43)
[2016-07-08] MEDS: PANTOPRAZOLE 40 MG/10 ML VIAL IVP SCH (09:39)
[2016-07-08 10:18] LABS: Iron 73 ug/dL (37-170)
[2016-07-08 10:30] LABS: % Iron Saturation 24.9 % (20-50); Total Iron Binding Capacity 293 ug/dL (265-497)
--- NOTE | 2016-07-08 10:47 | ECHOF ---
Referral Reason:cad MEASUREMENTS -------- HEIGHT: 165.1 cm WEIGHT: 66.2 kg BP: 101/56 RVIDd: 2.9 cm (< 3.3) IVSd: 1.2 cm (0.6 - 1.1) LVIDd: 3.1 cm (3.9 - 5.3) LVPWd: 1.3 cm (0.6 - 1.1) IVSs: 1.6 cm LVIDs: 2.2 cm LVPWs: 1.7 cm LA Diam: 3.3 cm (2.7 - 3.8) LAESV Index (A-L): 33.68 ml/m Ao Diam: 3.4 cm (2.0 - 3.7) AV Cusp: 2.1 cm (1.5 - 2.6) MV EXCURSION: 16.920 mm (> 18.000) MV EF SLOPE: 96 mm/s (70 - 150) EPSS: 0.8 cm RAP: 5.00 mmHg RVSP: 58.88 mmHg FINDINGS -------- Sinus rhythm. This was a technically adequate study. The left ventricular size is normal. There is borderline concentric left ventricular hypertrophy. Overall left ventricular systolic function is normal with, an EF between 55 - 60 %. The right ventricle is normal in size. LA is midly dilated 29-33ml/m2. The right atrium is normal in size. The aortic valve is trileaflet and appears structurally normal. Mild mitral annular calcification present. Mild mitral regurgitation is present. Moderate tricuspid regurgitation present. There is moderate to severe pulmonary hypertension. The right ventricular systolic pressure, as measured by Doppler, is 58.88mmHg. Moderate pulmonic regurgitation. The aortic root size is normal. There is no pericardial effusion. CONCLUSIONS -------- 1. This was a technically adequate study. 2. Moderate pulmonic regurgitation. 3. The aortic root size is normal. 4. There is no pericardial effusion. 5. There is borderline concentric left ventricular hypertrophy. 6. Overall left ventricular systolic function is normal with, an EF between 55 - 60 %. 7. LA is midly dilated 29-33ml/m2. 8. The aortic valve is trileaflet and appears structurally normal. 9. Mild mitral annular calcification present. 10. Mild mitral regurgitation is present. 11. Moderate tricuspid regurgitation present. 12. There is moderate to severe pulmonary hypertension. [employer]: Lissette Low RDCS
--- NOTE | 2016-07-08 12:20 | PN ---
An 85-year-old admitted for lower GI bleed secondary to AV malformation and esophagitis and patient is on Pradaxa which is being held at this point of time and Gastroenterology is recommending one more day of monitoring for any possible continued GI bleed. At this time, patient did not have any stools today morning and her IV fluids are being discontinued because of hyperchloremia leading to metabolic acidosis and creatinine improved. BUN continues to be elevated secondary to GI bleed and patient's heart rate is fairly controlled on metoprolol. Patient does have history of atrial fibrillation. REVIEW OF SYSTEMS: CARDIOVASCULAR: No chest pain, no orthopnea, no PND, no palpitations. PULMONARY: Denied any shortness of breath. No cough or hemoptysis. GASTROINTESTINAL: No diarrhea, nausea or vomiting. No abdominal pain. Normoactive bowel sounds. NEUROLOGIC: No headaches, no weakness, no numbness. Medications were reviewed and medication changes as mentioned in interval history. PHYSICAL EXAMINATION: VITAL SIGNS: Temperature 96.0, pulse of 107, respiratory rate of 18, blood pressure is 97/56, saturating at 98% on 3 L of O2 by nasal cannula which we will cut it down as we do not need 99% saturations. GENERAL: Patient appears to be tired, alert and oriented times close to 3 and patient does have conjunctival pallor. HEENT: Pupils are round and equally reacting to light. EOMI. No scleral icterus. No conjunctival pallor. Normocephalic, atraumatic. No pharyngeal erythema. No thyromegaly. CARDIOVASCULAR: S1 and S2 present. No murmurs, rubs, or gallops. PULMONARY: Chest is clear to auscultation, no wheezing or crackles. ABDOMEN: Soft, nontender, nondistended, normoactive bowel sounds. No palpable organomegaly. MUSCULOSKELETAL: No joint swelling or deformity. EXTREMITIES: No cyanosis, clubbing, or pedal edema. NEUROLOGICAL: Gross neurological examination did not reveal any focal deficits. SKIN: No rashes. LABORATORY DATA: CBC and CMP are normal for hemoglobin of 8.2, WBC count of 12,400. ASSESSMENT AND PLAN: 1. Upper gastrointestinal bleed secondary to AV malformation, management as mentioned above. 2. Congestive heart failure with chronic systolic dysfunction without any acute exacerbation; ejection fraction of 40% to 45% not in acute exacerbation. IV fluids will be discontinued as mentioned above. 3. Coronary artery disease. As per the dictation from Dr. Hollins, patient has ejection fraction of 40% to 45%. I did review her echocardiogram which showed 40% to 45% ejection fraction. 4. Patient has chronic atrial fibrillation, anticoagulation is on hold because of the gastrointestinal bleed. 5. Reflux esophagitis. 6. Presbyesophagus. 7. Hypertension. 8. Hyperlipidemia. 9. History of pulmonary embolism more than 6 months ago with an IVC filter.
[2016-07-08 14:29] LABS: Anisocytosis Slight; CH 31.9; CHCM 32.7; HCT 23.8 % (34.0-46.0); HDW 3.99; HGB 7.7 gm/dL (11.4-16.0); Hypochromasia Slight; MCHC 32.4 g/dL (31.0-37.0); MCV 98.9 fL (80.0-100.0); Macrocytosis Slight; Mean Platelet Volume 8.5; Poikilocytosis Slight; RBC 2.41 m/uL (3.80-5.40); RDW 18.9 % (11.5-15.5); WBC 11.9 k/uL (3.8-10.6)
[2016-07-08] MEDS: LACTATED RINGERS 1,000 ML IV SCH (15:19)
--- NOTE | 2016-07-08 16:40 | PN ---
Mrs. Condon is an 85-year-old female who presented with GI bleeding. She continues to be fatigued. She denies any chest pain. No dizziness. No palpitations. She denies any nausea. She is in atrial fibrillation at this time. She continues otherwise to be on metoprolol tartrate 25 mg twice a day. PHYSICAL EXAMINATION: Blood pressure 116/60 with a heart rate in the 90s. LUNGS: Clear. HEART: Irregularly irregular. S1, S2. No S3. Systolic murmur. ABDOMEN: Soft, non-tender. EXTREMITIES: No edema. Lab data revealed BUN and creatinine of 52 and 1.01. Hemoglobin of 8.3. ASSESSMENT: 1. Severe gastrointestinal bleeding with severe anemia. 2. Atrial fibrillation. 3. Hypertension. 4. Hyperlipidemia. 5. Status post pulmonary embolism and IVC placement. RECOMMENDATIONS: From the cardiac standpoint, will continue medical therapy. Depending on her heart rate, the dose of her beta kathi can be adjusted. Will continue holding her anticoagulation at this time. If she goes back on the Pradaxa, I would recommend a lower dose of 75 mg twice a day. We will see her on an as-needed basis. Please feel free to call us for any questions.
[2016-07-08] MEDS: traMADol 50 MG TAB PO PRN ×2 (17:16→21:23)
[2016-07-08] MEDS: MELATONIN 3 MG TABLET PO SCH (21:24)
[2016-07-09] MEDS: LACTATED RINGERS 1,000 ML IV SCH ×2 (01:51→12:32)
[2016-07-09 03:22] VITALS: RESP 18
[2016-07-09 07:51] LABS: Anisocytosis Moderate; Basophils # (A) 0.1 k/uL (0-0.2); Basophils % (A) 0 %; CH 31.7; CHCM 33.2; Eosinophils % (A) 0 %; HCT 27.8 % (34.0-46.0); HDW 4.02; Hypochromasia Slight; Luc # (Auto) 0.21; Luc % (Auto) 2; Lymphocytes # (A) 1.3 k/uL (1.0-4.8); Lymphocytes % (A) 12 %; MCH 31.5 pg (25.0-35.0); MCHC 32.4 g/dL (31.0-37.0); MCV 97.1 fL (80.0-100.0); Macrocytosis Slight; Mean Platelet Volume 9.1; Monocytes # (A) 0.6 k/uL (0-1.0); Monocytes % (A) 6 %; Neutrophils # (A) 8.7 k/uL (1.3-7.7); Neutrophils % (A) 79 %; Poikilocytosis Moderate; RBC 2.86 m/uL (3.80-5.40); RDW 20.2 % (11.5-15.5); WBC 10.9 k/uL (3.8-10.6); WBC (Perox) 11.08
[2016-07-09 08:18] LABS: Anion Gap 7 mmol/L; Blood Urea Nitrogen 41 mg/dL (7-17); Calcium 8.7 mg/dL (8.4-10.2); Carbon Dioxide 19 mmol/L (22-30); Chloride 113 mmol/L (98-107); Glucose 100 mg/dL (74-99); Non-African American GFR(MDRD) 54 (>60 ml/min/1.73 sqM); Sodium 139 mmol/L (137-145)
[2016-07-09] MEDS: PANTOPRAZOLE 40 MG/10 ML VIAL IVP SCH (08:28)
[2016-07-09 08:31] VITALS: BP 110/64; PULSE 109; TEMP 97.6
--- NOTE | 2016-07-09 10:02 | P.PN ---
Subjective Principal diagnosis: GI bleed s/p EGD cautery for actively bleeding duodenal AVM yesterday. Hyoptensive last night with a few small dark colored black stools. Received 1 unit blood transfusion. Afebrile. Denies abdominal pain. No emesis. Objective - Vital Signs Vital signs: Vital Signs Temp 97.6 F 07/09/16 07:00 Pulse 109 H 07/09/16 07:00 Resp 18 07/09/16 07:00 BP 110/64 07/09/16 07:00 Pulse Ox 92 L 07/09/16 07:00 Intake & Output 07/08/16 07/09/16 07/09/16 18:59 06:59 18:59 Intake Total 200 1060 Balance 200 1060 Intake: IV 200 Intake, IV Titration 750 Amount Lactated Ringers 1,000 ml 750 @ 100 mls/hr IV .Q10H [facility] Rx#:[id number] Blood Product 310 Rc As-1 Unit 310 [id number] Other: Voiding Method Toilet Toilet Toilet # Voids 1 1 1 # Bowel Movements 1 1 - Constitutional General appearance: Present: average body habitus - EENT Eyes: Present: normal appearance ENT: Present: hard of hearing - Neck Neck: Present: normal ROM - Respiratory Respiratory: bilateral: CTA - Cardiovascular Rhythm: regular - Gastrointestinal General gastrointestinal: Present: normal bowel sounds, soft - Integumentary Integumentary: Present: normal turgor - Neurologic Neurologic: Present: CNII-XII intact - Musculoskeletal Musculoskeletal: Present: strength equal bilaterally - Psychiatric Psychiatric: Present: A&O x's 3, appropriate affect - Labs CBC & Chem 7: 07/09/16 07:14 07/09/16 07:14 Labs: Abnormal Lab Results - Last 24 Hours (Table) 07/06/16 07/08/16 07/08/16 Range/Units 19:00 08:07 14:11 WBC 11.9 H (3.8-10.6) k/uL RBC 2.41 L (3.80-5.40) m/uL Hgb 7.7 L (11.4-16.0) gm/dL Hct 23.8 L (34.0-46.0) % RDW 18.9 H (11.5-15.5) % Neutrophils # (1.3-7.7) k/uL Chloride 115 H (98-107) mmol/L Carbon Dioxide 18 L (22-30) mmol/L BUN 52 H (7-17) mg/dL Glucose 114 H (74-99) mg/dL Crossmatch See Detail 07/09/16 07/09/16 Range/Units 07:14 07:14 WBC 10.9 H (3.8-10.6) k/uL RBC 2.86 L (3.80-5.40) m/uL Hgb 9.0 L (11.4-16.0) gm/dL Hct 27.8 L (34.0-46.0) % RDW 20.2 H (11.5-15.5) % Neutrophils # 8.7 H (1.3-7.7) k/uL Chloride 113 H (98-107) mmol/L Carbon Dioxide 19 L (22-30) mmol/L BUN 41 H (7-17) mg/dL Glucose 100 H (74-99) mg/dL Crossmatch Assessment and Plan (1) Acute upper GI bleed Status: Acute (2) Acute blood loss anemia Status: Acute (3) Duodenal arteriovenous malformation Status: Acute Plan: 1. Agreeable for DC as long as she remains hemodynamically stable without overt bleeding. 2. Protonix 40 mg daily. 3. RTO 1-2 weeks. 4. Liquid soft diet as tolerated. Assessment and plan of care discussed with Dr. Guerrero.
[2016-07-09] MEDS: METOPROLOL TARTRATE 25 MG TAB PO SCH (10:37)
--- NOTE | 2016-07-09 11:56 | DS ---
DATE OF ADMISSION: 07/06/2016 DATE OF DISCHARGE: Patient is an 85-year-old admitted secondary to upper GI bleed which is again secondary to AV malformation ( ) also esophagitis and patient was on Pradaxa which is being discontinued and will get Gastroenterology recommendations regarding initiation of Pradaxa. As of now, patient cannot be initiated on this medication and patient has multiple other medical problems, including atrial fibrillation, not very well rate-controlled at this point of time. Will increase the dose of beta kathi to 37.5 b.i.d. and will also get Cardiology opinion regarding this and patient will be discharged today. Patient was seen and examined on the day of discharge. PHYSICAL EXAMINATION: Vitals are stable. GENERAL EXAMINATION: Patient has pallor, alert and oriented x3. CARDIOVASCULAR: S1 and S2 present. Patient is tachycardic. No murmurs, rubs, or gallops. HEENT: Pupils are round and equally reacting to light. EOMI. No scleral icterus. No conjunctival pallor. Normocephalic, atraumatic. No pharyngeal erythema. No thyromegaly. PULMONARY: Chest is clear to auscultation, no wheezing or crackles. ABDOMEN: Soft, nontender, nondistended, normoactive bowel sounds. No palpable organomegaly. MUSCULOSKELETAL: No joint swelling or deformity. EXTREMITIES: No cyanosis, clubbing, or pedal edema. NEUROLOGICAL: Gross neurological examination did not reveal any focal deficits. SKIN: No rashes. LABORATORY DATA: Patient had a stable hemoglobin of 9.0. Patient received 1 unit of blood. Patient's hemoglobin yesterday was 7.7. Patient has 2 soft and dark stools, because of which we will watch her today. This morning, patient did not have any stools which are dark. ASSESSMENT AND PLAN: 1. Acute upper gastrointestinal bleed secondary day AV malformation. 2. Congestive heart failure, chronic systolic dysfunction; ejection fraction of 40% to 45% without any acute exacerbation. The patient will be resumed on Bumex. 3. Coronary artery disease. 4. Chronic atrial fibrillation, anticoagulation is being held because of gastrointestinal bleed. 5. Reflux esophagitis. 6. Presbyesophagus. 7. Hypertension. 8. Hyperlipidemia. 9. History of pulmonary embolism with an IVC filter in place. Patient will be discharged today. Patient discharged diet cardiac. Activity as tolerated. CHF discharge instructions will be provided. Patient is a high risk for readmission because of her multiple medical issues, her age and GI bleed, along with congestive heart failure. Patient had acute renal failure secondary to GI bleed, which improved. Spent greater than 35 minutes on total discharge process.
== END 2016-07-09 14:45 | disposition home health service (06) | DRG 378 ==
LOC: EC 16:41 → 5MS5E 17:56
PROVIDERS: ADMIT Internal Medicine; ATTEND Internal Medicine
PROC: 0W3P8ZZ Control Bleeding in Gastrointestinal Tract, Via Natural or Artificial Opening Endoscopic (ICD-10-PCS; principal; 2016-07-06)
PROC: 30233N1 Transfusion of Nonautologous Red Blood Cells into Peripheral Vein, Percutaneous Approach (ICD-10-PCS; 2016-07-07)
DX: K31.811 Angiodysplasia of stomach and duodenum with bleeding (principal); I48.92 Unspecified atrial flutter; N17.9 Acute kidney failure, unspecified; E87.8 Other disorders of electrolyte and fluid balance, not elsewhere classified; I13.0 Hypertensive heart and chronic kidney disease with heart failure and stage 1 through stage 4 chronic kidney disease, or unspecified chronic kidney disease; I50.22 Chronic systolic (congestive) heart failure; D62 Acute posthemorrhagic anemia; N39.0 Urinary tract infection, site not specified; I48.0 Paroxysmal atrial fibrillation; N18.9 Chronic kidney disease, unspecified; E78.5 Hyperlipidemia, unspecified; H91.90 Unspecified hearing loss, unspecified ear; I25.10 Atherosclerotic heart disease of native coronary artery without angina pectoris; K21.0 Gastro-esophageal reflux disease with esophagitis; K44.9 Diaphragmatic hernia without obstruction or gangrene; I25.2 Old myocardial infarction; Z86.711 Personal history of pulmonary embolism; Z87.891 Personal history of nicotine dependence; Z95.5 Presence of coronary angioplasty implant and graft; Z86.73 Personal history of transient ischemic attack (TIA), and cerebral infarction without residual deficits; Z79.82 Long term (current) use of aspirin; Z79.899 Other long term (current) drug therapy; Z79.01 Long term (current) use of anticoagulants; I45.10 Unspecified right bundle-branch block; K57.90 Diverticulosis of intestine, part unspecified, without perforation or abscess without bleeding; Z98.42 Cataract extraction status, left eye; Z98.41 Cataract extraction status, right eye; R26.9 Unspecified abnormalities of gait and mobility; Z95.828 Presence of other vascular implants and grafts
CPT/HCPCS: 36415; 43255; 71010; 80048; 81001; 82728; 83540; 83550; 83605; 85025; 85027; 85045; 86850; 86900; 86901; 86920; 93005; 93306; 96374; 96375; 99285

== ENCOUNTER 2016-10-04 20:02 | Inpatient (IN) | payer MEDICARE, BC ==
--- NOTE | 2016-10-04 21:03 | ED ---
General Adult HPI - General Chief complaint: Recheck/Abnormal Lab/Rx Stated complaint: Hypotension/Elev Triponin Time Seen by Provider: 10/04/16 20:02 Source: patient, EMS, RN notes reviewed Mode of arrival: EMS Limitations: no limitations - History of Present Illness Initial comments: This is a 68-year-old female who was transferred from [facility]. She presented there with 3 days of weakness she was noted have a low blood pressure in the 80s systolic which responded to 500 mL fluid bolus which was up to 110 systolic she was also found have elevated troponin of 0.11. She is ever a history of atrial fibrillation. Patient herself denies any fevers chills or sweats. She did state however she had a cough and some shortness of breath last couple days also. She had x-ray showed no infiltrates. EKG showed no acute findings. At this time she denies any problems. She did have a BNP of 476. Serum lactic acid 2.3 at the other facility sodium 133. Severity scale (1-10): 0 - Related Data Home Medications Medication Instructions Recorded Confirmed Doxepin HCl [SINEquan] 50 mg PO HS 11/04/14 07/07/16 Nitroglycerin Sl Tabs [Nitrostat] 0.4 mg SUBLINGUAL Q5M PRN 11/04/14 07/07/16 Vitamin B Complex 1 cap PO DAILY 11/04/14 07/07/16 Acetaminophen Tab [Tylenol] 500 mg PO Q6H PRN 07/07/16 07/07/16 Ascorbic Acid [Vitamin C] 500 mg PO DAILY 07/07/16 07/07/16 Cholecalciferol [Vitamin D3] 1,000 unit PO DAILY 07/07/16 07/07/16 Folic Acid 1 mg PO DAILY 07/07/16 07/07/16 Multivitamins, Thera [Multivitamin 1 tab PO DAILY 07/07/16 07/07/16 (formulary)] Vitamin E (Dl,Tocopheryl Acet) 400 unit PO DAILY 07/07/16 07/07/16 [Vitamin E] Previous Rx's Medication Instructions Recorded Aspirin EC [Ecotrin Low Dose] 81 mg PO DAILY #30 tablet. 11/29/14 Bumetanide [BUMEX] 1 mg PO DAILY #30 tab 11/29/14 Metoprolol Tartrate [Lopressor] 37.5 mg PO BID #60 tablet 07/09/16 Pantoprazole [Protonix] 40 mg PO DAILY #30 tablet. 07/09/16 Allergies Allergy/AdvReac Type Severity Reaction Status Date / Time Penicillins AdvReac Swelling Verified 07/06/16 16:53 Review of Systems ROS Statement: Those systems with pertinent positive or pertinent negative responses have been documented in the HPI. ROS Other: All systems not noted in ROS Statement are negative. Past Medical History Past Medical History: Atrial Flutter, Coronary Artery Disease (CAD), Chest Pain / Angina, Heart Failure, CVA/TIA, GERD/Reflux, Hearing Disorder / Deafness, Hyperlipidemia, Hypertension, Myocardial Infarction ([place]), Pulmonary Embolus ([place]) Additional Past Medical History / Comment(s): 11/16/2012 [place] cath with stent, hard of hearing-wears bilat hearing aids, DIVERTICULOSIS, FALLS, UTI, RBBB, EPISTAXIS , FALLS,CKD. Last Myocardial Infarction Date:: 2012 History of Any Multi-Drug Resistant Organisms: None Reported Past Surgical History: Cholecystectomy, Heart Catheterization With Stent, Hysterectomy Additional Past Surgical History / Comment(s): IVC FILTER , JANNA CATARACTS. Past Anesthesia/Blood Transfusion Reactions: No Reported Reaction Date of Last Stent Placement:: 2012 Past Psychological History: No Psychological Hx Reported Smoking Status: Former smoker Past Alcohol Use History: None Reported Past Drug Use History: None Reported - Past Family History Father Additional Family Medical History / Comment(s): heart issues Mother Additional Family Medical History / Comment(s): unknown Brother(s) Additional Family Medical History / Comment(s): heart surgery Daughter(s) History Unknown: Yes Family Medical History: No Reported History Son(s) Family Medical History: Diabetes Mellitus General Exam - General Exam Comments Initial Comments: This is a well up well-nourished awake alert oriented 3 female Limitations: no limitations General appearance: alert, in no apparent distress Head exam: Present: atraumatic, normocephalic, normal inspection Eye exam: Present: normal appearance, PERRL, EOMI. Absent: scleral icterus, conjunctival injection, periorbital swelling ENT exam: Present: normal exam, mucous membranes moist Neck exam: Present: normal inspection. Absent: tenderness, meningismus, lymphadenopathy Respiratory exam: Present: normal lung sounds bilaterally. Absent: respiratory distress, wheezes, rales, rhonchi, stridor Cardiovascular Exam: Present: irregular rhythm. Absent: systolic murmur, diastolic murmur, rubs, gallop, clicks GI/Abdominal exam: Present: soft, normal bowel sounds. Absent: distended, tenderness, guarding, rebound, rigid Extremities exam: Present: normal inspection, full ROM, normal capillary refill. Absent: tenderness, pedal edema, joint swelling, calf tenderness Back exam: Present: normal inspection Neurological exam: Present: alert, oriented X3, CN II-XII intact Psychiatric exam: Present: normal affect, normal mood Skin exam: Present: warm, dry, intact, normal color. Absent: rash Course Vital Signs 10/04/16 10/04/16 20:05 20:40 Temperature 97.2 F L Respiratory 16 14 Rate Blood Pressure 103/75 Blood Pressure 110/59 [Left Arm] O2 Sat by Pulse 98 Oximetry EKG Findings - EKG Results: EKG: interpreted by ERMD (EKG shows atrial fibrillation rate of 78 left exodeviation right bundle-branch block old inferior and anterior changes. No acute change seen with compared to the [place] 12-lead or one dated . QRS duration 134 QT/QTC of 416/474) Medical Decision Making - Medical Decision Making I did review the materials presented from [facility]. Patient currently is asymptomatic with no chest pain no fevers chills sweats shortness of breath. She will be admitted for further evaluation to the hospitalist service she's been on past. Patient is ever recent GI bleed she will be placed on a required glucose at this time Disposition Clinical Impression: Hypotensive episode, Renal insufficiency syndrome, Elevated troponin, Dehydration Disposition: ADMITTED IP TO THIS HOSP Condition: Stable Referrals: Giovani Sheldon MD [Primary Care Provider] - 1-2 days
[2016-10-04] MEDS ORDERED: NALOXONE 0.4 MG/ML 1 ML VIAL IV PRN (21:42)
[2016-10-04] MEDS ORDERED: NITROGLYCERIN SL TABS 0.4 MG TAB SUBLINGUAL PRN (21:44)
[2016-10-04] MEDS: SODIUM CHLORIDE 0.9% 1,000 ML IV SCH (21:50)
[2016-10-05] MEDS ORDERED: HEPARIN SODIUM,PORCINE 5,000 UNIT/ML 1 ML VIAL IV PRN (01:10)
[2016-10-05] MEDS ORDERED: HEPARIN SODIUM,PORCINE 5,000 UNIT/ML 1 ML VIAL IV ONE (01:10)
[2016-10-05] MEDS ORDERED: HEPARIN SODIUM,PORCINE/D5W PMX 25,000 UNIT in DEXTROSE/WATER 1 500ML.BAG IV SCH (01:15)
[2016-10-05 01:29] LABS: Anisocytosis Slight; Basophils # (A) 0.1 k/uL (0-0.2); Basophils % (A) 1 %; CH 27.7; CHCM 28.7; Eosinophils # (A) 0.1 k/uL (0-0.7); Eosinophils % (A) 1 %; HCT 34.7 % (34.0-46.0); HDW 3.22; Hypochromasia Marked; Luc # (Auto) 0.25; Luc % (Auto) 3; Lymphocytes # (A) 1.4 k/uL (1.0-4.8); Lymphocytes % (A) 19 %; MCHC 28.9 g/dL (31.0-37.0); MCV 96.7 fL (80.0-100.0); Macrocytosis Slight; Mean Platelet Volume 8.4; Monocytes # (A) 0.8 k/uL (0-1.0); Monocytes % (A) 10 %; Neutrophils # (A) 4.8 k/uL (1.3-7.7); Neutrophils % (A) 65 %; RBC 3.59 m/uL (3.80-5.40); RDW 17.1 % (11.5-15.5); WBC 7.3 k/uL (3.8-10.6); WBC (Perox) 7.27
[2016-10-05 01:40] LABS: INR 1.7 (<1.1); Partial Thromboplastin Time 41.8 sec (22.0-30.0); Prothrombin Time 16.7 sec (9.0-12.0)
[2016-10-05 06:23] LABS: Anisocytosis Slight; Basophils % (A) 1 %; CH 27.7; CHCM 28.9; Eosinophils # (A) 0.1 k/uL (0-0.7); Eosinophils % (A) 1 %; HCT 33.2 % (34.0-46.0); HDW 3.25; HGB 9.4 gm/dL (11.4-16.0); Hypochromasia Marked; Luc # (Auto) 0.19; Luc % (Auto) 3; Lymphocytes # (A) 1.3 k/uL (1.0-4.8); Lymphocytes % (A) 19 %; MCH 27.3 pg (25.0-35.0); MCHC 28.4 g/dL (31.0-37.0); MCV 96.3 fL (80.0-100.0); Macrocytosis Slight; Mean Platelet Volume 8.3; Monocytes # (A) 0.6 k/uL (0-1.0); Monocytes % (A) 9 %; Neutrophils # (A) 4.6 k/uL (1.3-7.7); Neutrophils % (A) 67 %; RBC 3.45 m/uL (3.80-5.40); RDW 17.3 % (11.5-15.5); WBC 6.8 k/uL (3.8-10.6); WBC (Perox) 7.13
[2016-10-05 06:53] LABS: Calcium 8.6 mg/dL (8.4-10.2); Magnesium 2.6 mg/dL (1.6-2.3); Potassium 4.2 mmol/L (3.5-5.1)
[2016-10-05] MEDS ORDERED: METOPROLOL TARTRATE 12.5 MG TAB ONE (09:00)
[2016-10-05] MEDS ORDERED: VITAMIN E (DL,TOCOPHERYL ACET) 400 UNIT CAP ONE (09:00)
[2016-10-05] MEDS ORDERED: CHOLECALCIFEROL 1,000 UNIT TAB ONE (09:00)
[2016-10-05] MEDS ORDERED: FOLIC ACID 1 MG TAB ONE (09:00)
[2016-10-05] MEDS ORDERED: B COMPLEX-VIT C-VIT E-ZINC 1 EACH TAB ONE (09:00)
[2016-10-05] MEDS ORDERED: METOPROLOL TARTRATE 12.5 MG TAB PO SCH (09:00)
[2016-10-05] MEDS ORDERED: BUMETANIDE 1 MG TAB ONE (09:00)
[2016-10-05] MEDS ORDERED: MULTIVITAMINS, THERA 1 EACH TAB ONE (09:00)
[2016-10-05] MEDS ORDERED: PANTOPRAZOLE 40 MG TABLET PO ONE (09:00)
[2016-10-05] MEDS ORDERED: BUMETANIDE 1 MG TAB PO SCH (09:00)
--- NOTE | 2016-10-05 10:56 | P.CRDCN ---
History of Present Illness Consult date: 10/05/16 Requesting physician: Edu Bates Reason for Consult (text): Weakness Chief complaint: Weakness History of present illness: This is an 85-year-old female who was transferred here from [facility]. Patient has a known history of coronary artery disease with prior stent placement, paroxysmal atrial fibrillation, hypertension, hyperlipidemia, history of GI bleed with severe anemia, patient is on Pradaxa for anticoagulation. history of prior PE with [place] filter placement. She presented to [facility] with symptoms of worsening weakness. She states for the past 2 or 3 days she has felt extremely weak at home and for this reason she went to the hospital. Patient denies any chest discomfort, no nausea, no vomiting or diarrhea. No black stool, she does have occasional blood in the stool from hemorrhoids. Blood pressure on arrival to [facility] was 90 systolic. EKG on arrival here showed a normal sinus rhythm with right bundle branch block pattern and nonspecific ST-T wave changes. Chest x-ray performed there revealed no focal infiltrates in the lungs. Coarse interstitial changes no venous congestion sodium 133, potassium 4.6, chloride 97 , CO2 26, BUN 50, creatinine 2.2. Troponin 0.11, hemoglobin 11.3, hematocrit 35.6, platelet count 341 UA was negative. Hemoglobin on arrival here 10.0, 9.4 this morning. INR 1.7, potassium 4.2, BUN 42, creatinine 1.7. Troponin 0.13, 0.17. Time of my examination this morning, patient continues to complain of some mild weakness. Denies any chest pain, breathing is overall stable. Echocardiogram with Doppler study which was performed in June of this year revealed an ejection fraction of 55-60%. Mild mitral regurg, moderate tricuspid regurg, moderate to severe pulmonary hypertension. Past Medical History Past Medical History: Atrial Fibrillation, Atrial Flutter, Coronary Artery Disease (CAD), Chest Pain / Angina, Heart Failure, CVA/TIA, GERD/Reflux, Hearing Disorder / Deafness, Hyperlipidemia, Hypertension, Myocardial Infarction ([place]), Pulmonary Embolus ([place]) Additional Past Medical History / Comment(s): 11/16/2012 [place] cath with stent, hard of hearing-wears bilat hearing aids, DIVERTICULOSIS, RBBB, EPISTAXIS, CKD. Last Myocardial Infarction Date:: 2012 History of Any Multi-Drug Resistant Organisms: None Reported Past Surgical History: Cholecystectomy, Heart Catheterization With Stent, Hysterectomy Additional Past Surgical History / Comment(s): IVC FILTER , JANNA CATARACTS. Past Anesthesia/Blood Transfusion Reactions: No Reported Reaction Date of Last Stent Placement:: 2012 Past Psychological History: No Psychological Hx Reported Additional Psychological History / Comment(s): PT IS ALERT AND ORIENTATED X3. LIVES WITH DAUGHTER. PT AMBULATES USING WALKER AND DAUGHTER ASSISTS PT WITH SHOWERS. 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 Smoking Status: Former smoker - Past Family History Father Additional Family Medical History / Comment(s): heart issues Mother Additional Family Medical History / Comment(s): unknown Brother(s) Additional Family Medical History / Comment(s): heart surgery Daughter(s) History Unknown: Yes Family Medical History: No Reported History Son(s) Family Medical History: Diabetes Mellitus Medications and Allergies Home Medications Medication Instructions Recorded Confirmed Type Doxepin HCl [SINEquan] 50 mg PO HS 11/04/14 10/05/16 History Nitroglycerin Sl Tabs [Nitrostat] 0.4 mg SUBLINGUAL Q5M PRN 11/04/14 10/05/16 History Vitamin B Complex 1 cap PO DAILY 11/04/14 10/05/16 History Cholecalciferol [Vitamin D3] 1,000 unit PO DAILY 07/07/16 10/05/16 History Folic Acid 1 mg PO DAILY 07/07/16 10/05/16 History Dabigatran [Pradaxa] 150 mg PO BID 10/05/16 10/05/16 History HYDROcodone/APAP 5-325MG [[place] 1 tab PO Q6HR PRN 10/05/16 10/05/16 History 5-325] Metoprolol Tartrate [Lopressor] 25 mg PO BID 10/05/16 10/05/16 History Potassium Chloride ER [K-Dur 20] 20 meq PO DAILY 10/05/16 10/05/16 History Thiamine [Vitamin B-1] 100 mg PO DAILY 10/05/16 10/05/16 History Allergies Allergy/AdvReac Type Severity Reaction Status Date / Time Penicillins AdvReac Swelling Verified 10/05/16 09:47 Physical Exam Vitals: Vital Signs Temp Pulse Pulse Resp BP BP Pulse Ox 10/05/16 08:00 97.2 F L 99 18 91/58 93 L 10/05/16 04:00 96.8 F L 94 18 90/54 98 10/04/16 23:44 97.1 F L 76 18 111/75 10/04/16 23:00 97.1 F L 76 18 111/75 91 L 10/04/16 22:47 98.0 F 77 16 92/54 99 10/04/16 22:17 80 92/53 98 10/04/16 20:40 14 110/59 10/04/16 20:05 97.2 F L 16 103/75 98 Intake and Output 10/04/16 10/05/16 10/05/16 22:59 06:59 14:59 Output Total 200 Balance -200 Output: Urine 200 Other: # Voids 1 # Bowel Movements 0 Weight 61.689 kg 62.5 kg PHYSICAL EXAMINATION: HEENT: Head is atraumatic, normocephalic. Pupils equal, round. Neck is supple. There is no elevated jugular venous pressure. HEART EXAMINATION: Heart S1 and S2 systolic ejection murmur is heard. CHEST EXAMINATION: Lungs are clear to auscultation and precussion. No chest wall tenderness is noted on palpation or with deep breathing. ABDOMEN: Soft, nontender. Bowel sounds are heard. No organomegaly noted. EXTREMITIES: 1+ peripheral pulses with no evidence of peripheral edema and no calf tenderness noted. Mild discoloration of the skin noted. NEUROLOGIC patient is awake, alert and oriented -3. . Results 10/05/16 05:32 10/05/16 05:32 Cardiac Enzymes 10/04/16 10/05/16 Range/Units 23:52 05:32 Troponin I 0.136 H* 0.174 H* (0.000-0.034) ng/mL Coagulation 10/05/16 10/05/16 Range/Units 01:16 08:43 PT 16.7 H (9.0-12.0) sec APTT 41.8 H 59.4 H (22.0-30.0) sec CBC 10/05/16 10/05/16 Range/Units 01:16 05:32 WBC 7.3 6.8 (3.8-10.6) k/uL RBC 3.59 L 3.45 L (3.80-5.40) m/uL Hgb 10.0 L 9.4 L (11.4-16.0) gm/dL Hct 34.7 33.2 L (34.0-46.0) % Plt Count 277 259 (150-450) k/uL Comprehensive Metabolic Panel 10/05/16 Range/Units 05:32 Sodium 137 (137-145) mmol/L Potassium 4.2 (3.5-5.1) mmol/L Chloride 105 (98-107) mmol/L Carbon Dioxide 25 (22-30) mmol/L BUN 42 H (7-17) mg/dL Creatinine 1.70 H (0.52-1.04) mg/dL Glucose 69 L (74-99) mg/dL Calcium 8.6 (8.4-10.2) mg/dL Current Medications Generic Name Dose Route Start Last Admin Trade Name Freq PRN Reason Stop Dose Admin Bumetanide 1 mg 10/05/16 09:00 Bumex PO DAILY [facility] Cholecalciferol 1,000 unit 10/05/16 09:00 Vitamin D3 PO DAILY [facility] Doxepin HCl 50 mg 10/05/16 21:00 Sinequan PO HS [facility] Folic Acid 1 mg 10/05/16 12:00 Folic Acid PO DAILY@1200 [facility] Heparin Sodium (Porcine) 0 unit 10/05/16 01:10 Heparin IV PER PROTOCOL PRN Low PTT Protocol Sodium Chloride 1,000 mls @ 80 mls/hr 10/04/16 21:45 10/04/16 21:50 Saline 0.9% IV 80 mls/hr .[id number] TRANG Administration Heparin Sodium/Dextrose 25,000 500 mls @ 14.76 mls/hr 10/05/16 01:15 01:58 unit/ IV Solution IV 12 units/kg/hr .Q24H TRANG 14.76 mls/hr Protocol Administration 12 UNITS/KG/HR Metoprolol Tartrate 37.5 mg 10/05/16 09:00 Lopressor PO BID [facility] Multivitamins 1 each 10/05/16 12:00 Theragran PO DAILY@1200 [facility] Naloxone HCl 0.2 mg 10/04/16 21:42 Narcan IV Q2M PRN Opioid Reversal Nitroglycerin 0.4 mg 10/04/16 21:44 Nitrostat SUBLINGUAL Q5M PRN Chest Pain Pantoprazole Sodium 40 mg 10/05/16 07:30 Protonix PO AC-BRKFST TRANG Vitamin B Complex/Vit C/Vit E/Zinc 1 each 10/05/16 09:00 Z-Bec PO DAILY TRANG Vitamin E 400 unit 10/05/16 09:00 Vitamin E PO DAILY TRANG Intake and Output 10/04/16 10/05/16 10/05/16 22:59 06:59 14:59 Output Total 200 Balance -200 Output: Urine 200 Other: # Voids 1 # Bowel Movements 0 Weight 61.689 kg 62.5 kg 10/05/16 05:32 10/05/16 05:32 EKG Interpretations (text) EKG shows atrial flutter Assessment and Plan Plan: Assessment and plan #1 symptoms of progressive weakness could be secondary to dehydration and hypotension. Blood pressure on arrival to [place] 80 systolic. Creatinine 2.2 at [place], 1.7 this morning. #2 of coronary artery disease with prior stent placement, #3 paroxysmal atrial fibrillation/flutter #4 recent GI bleed in June of this year #5 history of prior PE with [place] filter placement #6 hypertension #7 abnormal renal function, likely secondary to dehydration. #8 abnormal troponins, not consistent with acute coronary syndrome, likely secondary to oxygen supply and demand mismatch. #9 History of CVA Plan Patient had an echocardiogram with Doppler study performed in June of this year , we will repeat one tomorrow. Continue to hydrate the patient. Hold the Bumex. Discontinue heparin start eliquis 2.5 BID. Hold beta kathi today. Discontinue Pradaxa. Check free T4 and TSH level. Feed the patient. Further recommendations to follow. DNP note has been reviewed, I agree with a documented findings and plan of care. Patient was seen and examined.
[2016-10-05] MEDS: B COMPLEX-VIT C-VIT E-ZINC 1 EACH TAB PO SCH (16:49)
[2016-10-05] MEDS: PANTOPRAZOLE 40 MG TABLET PO SCH (16:49)
[2016-10-05] MEDS: SODIUM CHLORIDE 0.9% 1,000 ML IV SCH ×2 (16:49→22:43)
[2016-10-05] MEDS: CHOLECALCIFEROL 1,000 UNIT TAB PO SCH (16:49)
[2016-10-05] MEDS: VITAMIN E (DL,TOCOPHERYL ACET) 400 UNIT CAP PO SCH (16:49)
[2016-10-05] MEDS: FOLIC ACID 1 MG TAB PO SCH (16:50)
[2016-10-05] MEDS: MULTIVITAMINS, THERA 1 EACH TAB PO SCH (16:50)
[2016-10-05] MEDS: APIXABAN 2.5 MG TABLET PO SCH ×2 (16:51→20:21)
[2016-10-05] MEDS: HYDROcodone/APAP 5-325MG 1 EACH TAB PO PRN ×2 (16:57→22:45)
--- NOTE | 2016-10-05 18:02 | XR ---
EXAMINATION TYPE: XR chest 1V portable DATE OF EXAM: 10/05/2016 COMPARISON: NONE HISTORY: Heart failure. Chest pain. TECHNIQUE: Single frontal view of the chest is obtained. FINDINGS: Heart is enlarged. There is coarse interstitial infiltrates throughout the lungs. Thoracic aorta is atheromatous. Pulmonary vascularity is difficult to evaluate because of the extensive lung disease. There is no definite pleural effusion. There are chest leads. IMPRESSION: Pulmonary interstitial fibrosis. This is similar to old exam. Mild heart failure cannot be entirely excluded. I do not suspect heart failure however.
[2016-10-05] MEDS: DOXEPIN 25 MG CAP PO SCH (20:21)
[2016-10-05] MEDS: THIAMINE 100 MG TAB PO SCH (20:21)
[2016-10-05] MEDS ORDERED: METOPROLOL TARTRATE 25 MG TAB PO SCH (21:00)
--- NOTE | 2016-10-05 21:17 | HP ---
DATE OF ADMISSION: 10/05/2016 HISTORY OF PRESENT ILLNESS: This 85-year-old woman with a past history of atrial fibrillation, coronary artery disease, history of chest pain, CHF, GERD, hypertension, hyperlipidemia, history of myocardial infarction, pulmonary embolism also recently admitted to [facility] with complaints of upper gastrointestinal bleeding, possible acute AV malformation. The patient currently is living with the family. Apparently the patient presented to [facility] with complaints of weakness. The patient also had low blood pressure. Responded to IV fluid bolus. P.o. intake was extremely poor and the patient was sent to [facility] and admitted to the hospital for further evaluation and treatment. There is no chest pain, no palpitations. No history of headache, loss of consciousness. The patient also confused, unable to give a coherent history. Most of the history taken from my discussion with staff and review of the chart at this time. PAST MEDICAL HISTORY: History of atrial fibrillation, flutter. History of CAD, chest pain, CHF, CVA, TIA gastroesophageal reflux disease, hard of hearing, deafness, hypertension, hyperlipidemia, and myocardial infarction, pulmonary embolism and history of cholecystectomy, coronary artery disease and stent. Medications prior to admission include home medications are: 1. Vitamin B complex one p.o. daily. 2. Vitamin B1 100 mg p.o. daily. 3. K-Dur 20 meq p.o. daily. 4. Protonix 40 mg p.o. daily. 5. Lopressor 20 mg p.o. b.i.d. 6. Hydrocodone 5 mg q.6h p.r.n. 7. Folic acid 1 mg p.o. daily. 8. Sinequan 50 mg p.o. q.h.s. 9. Pradaxa 150 mg p.o. b.i.d. 10. Vitamin D3 1000 p.o. daily. 11. Bumex 1 mg p.o. daily. 12. Ecotrin 81 mg p.o. daily. 13. Nitrostat 0.4 sublingual p.r.n. ALLERGIES: PENICILLIN. FAMILY HISTORY: History of heart disease in the family. SOCIAL HISTORY: Previous history of smoking per chart. Review of systems could not be taken at length because of change in mental status. PHYSICAL EXAMINATION: Pulse is 98, blood pressure 88/62. Respiratory rate 16. Temperature 97 degrees. Pulse ox 95% on 2 L. HEENT: Conjunctivae normal. Oral mucosa moist. NECK: No jugular venous distention. No carotid bruit. No lymph node enlargement. CARDIOVASCULAR: S1, S2 muffled. No S3, no S4. RESPIRATORY: Breath sounds diminished in the bases. Scattered rhonchi, no crackles. ABDOMEN: Soft. Nontender. No mass palpable. LEGS: No edema. No swelling. CENTRAL NERVOUS SYSTEM: Higher functions as mentioned earlier. Moves all four limbs. No focal deficits. LYMPHATICS: No lymph nodes palpable in the neck, axillae or groin. SKIN: No ulcer, rash or bleeding. LABS: At this time shows WBC 6.8, hemoglobin is 9.4. Creatinine is 1.70. Troponin 0.174. ASSESSMENT: 1. Weakness and hypotension for evaluation, possibly prerenal factors and hypovolemia. 2. Increased creatinine with possible acute renal failure. 3. Troponin elevated to 0.174 rule out acute non-ST segment myocardial infarction. 4. Change in mental status, metabolic encephalopathy, acute on chronic. 5. Anemia, normocytic anemia of chronic disease. 6. Hypoglycemia. 7. History of atrial flutter fibrillation. 8. History of coronary artery disease and stent. 9. History of congestive heart failure with ejection fraction 40% to 45% with chronic systolic dysfunction. 10. History of cerebrovascular accident, transient ischemic attack. 11. Gastroesophageal reflux disease. 12. Hard of hearing. 13. Hypertension. 14. Hyperlipidemia. 15. Gait dysfunction. 16. History of myocardial infarction. 17. History of pulmonary embolism. 18. 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 19. History of diverticulosis. 20. History of right bundle branch block. 21. History of epistaxis. 22. History of IVC filter. 23. History of bilateral cataracts. 24. Remote history of nicotine dependence. 25. FULL CODE. RECOMMENDATIONS AND DISCUSSION: In this 85 -year-old woman who presented with multiple complex medical issues, we will monitor the patient closely. Continue the current medications. Continue symptomatic treatment. I would recommend continue with IV fluids. I would also recommend a set of blood cultures and a portable chest x-ray to rule out any possibility of infections. Otherwise, home medications will be resumed and IV heparin has been initiated. PT/OT evaluation possible ECF rehab with guarded prognosis. Further recommendations to follow. Troponins as mentioned earlier. Conservative line of management. Cardiology will be consulted. JUDY
[2016-10-06] MEDS: PANTOPRAZOLE 40 MG TABLET PO SCH (05:53)
[2016-10-06 05:55] LABS: Anisocytosis Slight; Basophils % (A) 1 %; CH 27.2; CHCM 28.6; Eosinophils # (A) 0.1 k/uL (0-0.7); Eosinophils % (A) 2 %; HCT 29.9 % (34.0-46.0); HDW 3.27; HGB 9.2 gm/dL (11.4-16.0); Hypochromasia Marked; Luc % (Auto) 4; Lymphocytes # (A) 1.2 k/uL (1.0-4.8); Lymphocytes % (A) 21 %; MCH 29.2 pg (25.0-35.0); MCHC 30.6 g/dL (31.0-37.0); MCV 95.5 fL (80.0-100.0); Mean Platelet Volume 7.6; Monocytes # (A) 0.5 k/uL (0-1.0); Monocytes % (A) 9 %; Neutrophils # (A) 3.6 k/uL (1.3-7.7); Neutrophils % (A) 63 %; RBC 3.13 m/uL (3.80-5.40); WBC 5.6 k/uL (3.8-10.6); WBC (Perox) 5.96
[2016-10-06 06:10] LABS: Calcium 7.8 mg/dL (8.4-10.2); Potassium 4.1 mmol/L (3.5-5.1)
[2016-10-06] MEDS: HYDROcodone/APAP 5-325MG 1 EACH TAB PO PRN ×3 (08:30→19:51)
[2016-10-06] MEDS: B COMPLEX-VIT C-VIT E-ZINC 1 EACH TAB PO SCH (08:31)
[2016-10-06] MEDS: CHOLECALCIFEROL 1,000 UNIT TAB PO SCH (08:31)
[2016-10-06] MEDS: THIAMINE 100 MG TAB PO SCH (08:31)
[2016-10-06] MEDS: VITAMIN E (DL,TOCOPHERYL ACET) 400 UNIT CAP PO SCH (08:31)
[2016-10-06] MEDS: MULTIVITAMINS, THERA 1 EACH TAB PO SCH (08:31)
[2016-10-06] MEDS: FOLIC ACID 1 MG TAB PO SCH (08:31)
[2016-10-06] MEDS: APIXABAN 2.5 MG TABLET PO SCH ×2 (08:32→19:52)
[2016-10-06] MEDS: SODIUM CHLORIDE 0.9% 1,000 ML IV SCH ×2 (08:33→21:11)
[2016-10-06 12:46] LABS: Appearance,Urine Clear (Clear); Bilirubin,Urine Negative (Negative); Glucose,Urine (UA) Negative (Negative); Ketones,Urine Negative (Negative); Leukocyte Esterase,Urine Negative (Negative); Nitrite,Urine Negative (Negative); PH, Urine 5.5 (5.0-8.0); Protein,Urine Negative (Negative); Specific Gravity,Urine 1.012 (1.001-1.035); UA Billing (MACRO vs. MICRO) CHEM; Urobilinogen,Urine <2.0 mg/dL (<2.0)
--- NOTE | 2016-10-06 16:40 | P.PN ---
Subjective Principal diagnosis: Weakness This is an 85-year-old female admitted to the hospital with weakness likely secondary to dehydration. Overall the patient states she's feeling better today. She has some discomfort in her back area on the right side which she states she has had for years. Overall she is feeling much stronger today. At pressure this morning 96/60 with a heart rate in the 90s. Hemoglobin 9.2, BUN 34, creatinine 1.4. Objective - Vital Signs Vital signs: Vital Signs Temp 97.5 F L 10/06/16 11:47 Pulse 103 H 10/06/16 11:47 Resp 18 10/06/16 11:47 BP 92/57 10/06/16 11:47 Pulse Ox 97 10/06/16 11:47 Intake & Output 10/05/16 10/06/16 10/06/16 18:59 06:59 18:59 Intake Total 967.6 1280 240 Output Total 500 300 Balance 467.6 1280 -60 Weight 62.3 kg 62.3 kg Intake: IV 1280 Sodium Chloride 0.9% 1, 1280 000 ml @ 80 mls/hr IV . [id number] TRANG Rx#:[id number] Intake, IV Titration 757.6 Amount Heparin Sodium,Porcine/ 117.6 D5w Pmx 25,000 unit In Dextrose/Water 1 500ml. bag @ 12 UNITS/KG/HR 14. 76 mls/hr IV .Q24H TRANG Rx #:[id number] Sodium Chloride 0.9% 1, 640 000 ml @ 80 mls/hr IV . [id number] TRANG Rx#:[id number] Oral 210 240 Output: Urine 500 300 Other: # Bowel Movements 1 - Exam PHYSICAL EXAMINATION: HEENT: Head is atraumatic, normocephalic. Pupils equal, round. Neck is supple. There is no elevated jugular venous pressure. HEART EXAMINATION: Heart S1 and S2 systolic ejection murmur is heard. CHEST EXAMINATION: Lungs are clear to auscultation and precussion. No chest wall tenderness is noted on palpation or with deep breathing. ABDOMEN: Soft, nontender. Bowel sounds are heard. No organomegaly noted. EXTREMITIES: 1+ peripheral pulses with no evidence of peripheral edema and no calf tenderness noted. NEUROLOGIC patient is awake, alert and oriented -3. . - Labs CBC & Chem 7: 10/06/16 05:27 06/26/17 05:27 Labs: Abnormal Lab Results - Last 24 Hours (Table) 10/06/16 10/06/16 Range/Units 05:27 05:27 RBC 3.13 L (3.80-5.40) m/uL Hgb 9.2 L (11.4-16.0) gm/dL Hct 29.9 L (34.0-46.0) % MCHC 30.6 L (31.0-37.0) g/dL RDW 17.0 H (11.5-15.5) % BUN 34 H (7-17) mg/dL Creatinine 1.43 H (0.52-1.04) mg/dL Calcium 7.8 L (8.4-10.2) mg/dL Assessment and Plan Plan: Assessment and plan #1 symptoms of progressive weakness could be secondary to dehydration and hypotension. Blood pressure on arrival to [place] 80 systolic. Creatinine 2.2 at [place], 1.4 this morning. #2 of coronary artery disease with prior stent placement, #3 paroxysmal atrial fibrillation/flutter #4 recent GI bleed in June of this year #5 history of prior PE with [place] filter placement #6 hypertension #7 abnormal renal function, likely secondary to dehydration. #8 abnormal troponins, not consistent with acute coronary syndrome, likely secondary to oxygen supply and demand mismatch. #9 History of CVA Plan From cardiology's perspective, we'll continue hydration for 24 hours. Check lytes BUN and creatinine in the morning. We will follow along with you now on an as-needed basis only, please don't hesitate to call with any questions. DNP note has been reviewed, I agree with a documented findings and plan of care. Patient was seen and examined.
--- NOTE | 2016-10-06 18:18 | PN ---
DATE OF SERVICE: 10/06/2016 This 85 -year-old woman who was admitted with generalized weakness and tiredness had hypotension and also multiple complex medical problems including acute renal failure, history of elevated troponins and change in mental status also. The patient being closely monitored. Patient is also confused at this time. Multiple consultants, including cardiology following the patient closely also. Past medical history reviewed. REVIEW OF SYSTEMS: CARDIOVASCULAR: as mentioned earlier. RESPIRATORY: As mentioned earlier. GI: No nausea. : No dysuria. Nervous system: No focal deficits. Current medications are reviewed and include: 1. [place] 5 mg q6h p.r.n. 2. Eliquis 2.5 mg b.i.d. 3. Vitamin D3 1000 daily. 4. Sinequan 50 mg p.o. 5. Folic acid 1 mg daily. 6. Multivitamin 1 p.o. daily. 7. Narcan 0.2 q.2 p.r.n. 8. Nitrostat 0.4 sublingual p.r.n. 9. Protonix. 10. Thiamin 100 mg. 11. Vitamin C. 12. Vitamin E. PHYSICAL EXAMINATION: Patient is alert and oriented times three. Pulse 103. Blood pressure 91/54. Respiratory rate 18. Temperature 96.8. Pulse ox 100% on 2 L. HEENT: Conjunctivae normal. Oral mucosa moist. NECK: No jugular venous distention. No carotid bruit. No lymph node enlargement. CARDIOVASCULAR: S1, S2 muffled. RESPIRATORY: Breath sounds diminished at the bases. A few rhonchi bilaterally. No crackles. ABDOMEN: Soft, nontender. Legs: Right leg swelling and skin tear also present. LYMPHATICS: No lymph nodes palpable in the neck, axillae or groin. SKIN: No ulcer, rash or bleeding. CENTRAL NERVOUS SYSTEM: Higher function as mentioned. Moves all 4 limbs. Mild diffuse weakness. present. LABS: At this time shows: WBC 5.6, hemoglobin 9.2 and otherwise, creatinine 1.43. INR is 1.62. ASSESSMENT: 1. Acute hypotension, possibly prerenal factors and hypoalbuminemia with dehydration, present on admission. 2. Increased creatinine with possible acute renal failure, with acute tubular necrosis, prerenal factors present on admission secondary to dehydration. 3. Troponin elevated up to 0.174, possible acute non-ST segment myocardial infarction. 4. Change in mental status, metabolic encephalopathy, acute on chronic. 5. Anemia, normocytic anemia of chronic disease. 6. Hypoglycemia. 7. History of atrial flutter fibrillation. 8. History of coronary artery disease/stent. 9. Congestive heart failure, ejection fraction 40 to 45% with chronic systolic dysfunction. 10. History of cerebrovascular accident, transient ischemic attack. 11. History of gastroesophageal reflux disease. 12. History of hard of hearing. 13. Hypertension. 14. Hyperlipidemia. 15. History of gait dysfunction. 16. History of myocardial infarction. 17. History of pulmonary embolism. 18. 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 19. History of diverticulosis. 20. History of right bundle branch block. 21. History of epistaxis. 22. History of IVC filter. 23. History of bilateral cataracts. 24. History of remote history of nicotine dependence. 25. FULL CODE. RECOMMENDATIONS AND DISCUSSION: Recommend to continue current medications, continue with monitoring. Symptomatic treatment. Otherwise, at this time, I recommend monitor the patient closely. Continue with IV hydration. Closely follow with cardiology. Monitor creatinine closely. Guarded prognosis because of multiple complex medical issues. PT/OT evaluation. ECF rehab. Further recommendations to follow. MTDD
[2016-10-06] MEDS: DOXEPIN 25 MG CAP PO SCH (19:52)
[2016-10-07] MEDS: HYDROcodone/APAP 5-325MG 1 EACH TAB PO PRN ×4 (04:19→23:37)
[2016-10-07] MEDS: PANTOPRAZOLE 40 MG TABLET PO SCH (06:50)
[2016-10-07 06:55] LABS: Potassium 4.1 mmol/L (3.5-5.1)
[2016-10-07 07:04] LABS: Anisocytosis Slight; Basophils % (A) 0 %; CHCM 28.5; Eosinophils # (A) 0.1 k/uL (0-0.7); Eosinophils % (A) 2 %; HCT 30.2 % (34.0-46.0); HDW 3.37; HGB 9.3 gm/dL (11.4-16.0); Hypochromasia Marked; Luc # (Auto) 0.19; Luc % (Auto) 3; Lymphocytes # (A) 0.9 k/uL (1.0-4.8); Lymphocytes % (A) 12 %; MCH 29.5 pg (25.0-35.0); MCHC 30.9 g/dL (31.0-37.0); MCV 95.6 fL (80.0-100.0); Mean Platelet Volume 7.8; Monocytes # (A) 0.6 k/uL (0-1.0); Monocytes % (A) 8 %; Neutrophils # (A) 5.4 k/uL (1.3-7.7); Neutrophils % (A) 75 %; RBC 3.16 m/uL (3.80-5.40); RDW 17.1 % (11.5-15.5); WBC 7.2 k/uL (3.8-10.6); WBC (Perox) 7.32
[2016-10-07] MEDS: B COMPLEX-VIT C-VIT E-ZINC 1 EACH TAB PO SCH (09:35)
[2016-10-07] MEDS: CHOLECALCIFEROL 1,000 UNIT TAB PO SCH (09:35)
[2016-10-07] MEDS: FOLIC ACID 1 MG TAB PO SCH (09:35)
[2016-10-07] MEDS: THIAMINE 100 MG TAB PO SCH (09:35)
[2016-10-07] MEDS: APIXABAN 2.5 MG TABLET PO SCH ×2 (09:35→21:23)
[2016-10-07] MEDS: VITAMIN E (DL,TOCOPHERYL ACET) 400 UNIT CAP PO SCH (09:35)
[2016-10-07] MEDS: SODIUM CHLORIDE 0.9% 1,000 ML IV SCH (09:37)
[2016-10-07] MEDS: MULTIVITAMINS, THERA 1 EACH TAB PO SCH (09:37)
--- NOTE | 2016-10-07 10:25 | ECHOF ---
Referral Reason:abn trop MEASUREMENTS -------- HEIGHT: 157.5 cm WEIGHT: 62.1 kg BP: 96/57 RVIDd: 3.6 cm (< 3.3) IVSd: 1.4 cm (0.6 - 1.1) LVIDd: 3.3 cm (3.9 - 5.3) LVPWd: 1.6 cm (0.6 - 1.1) IVSs: 1.9 cm LVIDs: 2.3 cm LVPWs: 1.8 cm LAESV Index (A-L): 44.33 ml/m Ao Diam: 3.8 cm (2.0 - 3.7) AV Cusp: 1.7 cm (1.5 - 2.6) LA Diam: 3.6 cm (2.7 - 3.8) MV EXCURSION: 11.106 mm (> 18.000) MV EF SLOPE: 66 mm/s (70 - 150) EPSS: 0.6 cm RAP: 5.00 mmHg RVSP: 53.51 mmHg FINDINGS -------- Resting tachycardia (HR>100bpm). This was a technically good study. There is moderate concentric left ventricular hypertrophy. Overall left ventricular systolic function is normal with, an EF between 60 - 65 %. The right ventricle is mildly enlarged. LA is severely dilated >40 ml/m2 RA appears enlarged. Aortic valve is trileaflet and is mildly thickened. There is no evidence of aortic regurgitation. There is no evidence of aortic stenosis. The mitral valve leaflets are mildly thickened. Mild mitral annular calcification present. [id number] mitral regurgitation is present. Trace tricuspid regurgitation present. There is mild to moderate pulmonary hypertension. The right ventricular systolic pressure, as measured by Doppler, is 53.51mmHg. The pulmonic valve was not well visualized. The aortic root size is normal. IVC Not well visulized. The pericardium is normal. There is no pericardial effusion. CONCLUSIONS -------- 1. Resting tachycardia (HR>100bpm). 2. Mild mitral annular calcification present. 3. [id number] mitral regurgitation is present. 4. Trace tricuspid regurgitation present. 5. There is mild to moderate pulmonary hypertension. 6. The right ventricular systolic pressure, as measured by Doppler, is 53.51mmHg. 7. The pulmonic valve was not well visualized. 8. The aortic root size is normal. 9. IVC Not well visulized. 10. There is no pericardial effusion. 11. This was a technically good study. 12. There is moderate concentric left ventricular hypertrophy. 13. Overall left ventricular systolic function is normal with, an EF between 60 - 65 %. 14. The right ventricle is mildly enlarged. 15. LA is severely dilated >40 ml/m2 16. RA appears enlarged. 17. Aortic valve is trileaflet and is mildly thickened. 18. The mitral valve leaflets are mildly thickened. REFERENCE ASSISTANT: Db Kirkpatrick RDCS
[2016-10-07 16:06] LABS: ALT 24 U/L (9-52); AST 26 U/L (14-36); Alkaline Phosphatase 77 U/L (38-126); Anion Gap 5 mmol/L; Blood Urea Nitrogen 24 mg/dL (7-17); Calcium 8.2 mg/dL (8.4-10.2); Carbon Dioxide 23 mmol/L (22-30); Chloride 111 mmol/L (98-107); Glucose 130 mg/dL (74-99); Non-African American GFR(MDRD) 52 (>60 ml/min/1.73 sqM); Potassium 4.4 mmol/L (3.5-5.1); Sodium 139 mmol/L (137-145); Total Bilirubin 0.7 mg/dL (0.2-1.3); Total Protein 4.6 g/dL (6.3-8.2)
[2016-10-07] MEDS: DOXEPIN 25 MG CAP PO SCH (21:23)
[2016-10-08] MEDS: HYDROcodone/APAP 5-325MG 1 EACH TAB PO PRN ×4 (05:55→23:53)
[2016-10-08 07:25] LABS: Anisocytosis Slight; Basophils % (A) 1 %; CH 27.2; CHCM 28.8; Eosinophils # (A) 0.1 k/uL (0-0.7); Eosinophils % (A) 1 %; HCT 31.8 % (34.0-46.0); HDW 3.41; HGB 9.2 gm/dL (11.4-16.0); Hypochromasia Marked; Luc # (Auto) 0.17; Luc % (Auto) 3; Lymphocytes % (A) 15 %; MCH 27.4 pg (25.0-35.0); MCHC 28.8 g/dL (31.0-37.0); MCV 95.2 fL (80.0-100.0); Mean Platelet Volume 8.2; Monocytes # (A) 0.6 k/uL (0-1.0); Monocytes % (A) 9 %; Neutrophils # (A) 4.8 k/uL (1.3-7.7); Neutrophils % (A) 71 %; Poikilocytosis Slight; RBC 3.34 m/uL (3.80-5.40); RDW 17.1 % (11.5-15.5); WBC 6.8 k/uL (3.8-10.6); WBC (Perox) 6.66
[2016-10-08 07:56] LABS: Anion Gap 6 mmol/L; Blood Urea Nitrogen 20 mg/dL (7-17); Calcium 8.2 mg/dL (8.4-10.2); Carbon Dioxide 19 mmol/L (22-30); Chloride 113 mmol/L (98-107); Glucose 85 mg/dL (74-99); Non-African American GFR(MDRD) >60 (>60 ml/min/1.73 sqM); Potassium 4.2 mmol/L (3.5-5.1); Sodium 138 mmol/L (137-145)
[2016-10-08] MEDS: APIXABAN 2.5 MG TABLET PO SCH ×2 (10:19→20:52)
[2016-10-08] MEDS: THIAMINE 100 MG TAB PO SCH (10:19)
[2016-10-08] MEDS: VITAMIN E (DL,TOCOPHERYL ACET) 400 UNIT CAP PO SCH (10:20)
[2016-10-08] MEDS: CHOLECALCIFEROL 1,000 UNIT TAB PO SCH (10:20)
[2016-10-08] MEDS: PANTOPRAZOLE 40 MG TABLET PO SCH (10:20)
[2016-10-08] MEDS: B COMPLEX-VIT C-VIT E-ZINC 1 EACH TAB PO SCH (10:20)
[2016-10-08] MEDS: FOLIC ACID 1 MG TAB PO SCH (12:57)
[2016-10-08] MEDS: MULTIVITAMINS, THERA 1 EACH TAB PO SCH (13:00)
[2016-10-08] MEDS: SODIUM CHLORIDE 0.9% 1,000 ML IV SCH (17:48)
[2016-10-08] MEDS: METOPROLOL TARTRATE 12.5 MG TAB PO SCH ×2 (17:54→20:51)
[2016-10-08] MEDS: DOXEPIN 25 MG CAP PO SCH (20:51)
[2016-10-08 23:45] VITALS: RESP 16
[2016-10-09] MEDS: DOCUSATE 100 MG CAP PO SCH ×2 (00:13→08:35)
[2016-10-09] MEDS: HYDROcodone/APAP 5-325MG 1 EACH TAB PO PRN ×2 (05:43→11:36)
[2016-10-09] MEDS: SODIUM CHLORIDE 0.9% 1,000 ML IV SCH (07:13)
[2016-10-09 07:35] LABS: Anisocytosis Slight; Basophils # (A) 0.1 k/uL (0-0.2); Basophils % (A) 1 %; CH 26.6; CHCM 27.8; Eosinophils # (A) 0.1 k/uL (0-0.7); Eosinophils % (A) 2 %; HCT 30.7 % (34.0-46.0); HDW 3.34; Hypochromasia Marked; Luc # (Auto) 0.24; Luc % (Auto) 4; Lymphocytes # (A) 1.1 k/uL (1.0-4.8); Lymphocytes % (A) 18 %; MCH 28.3 pg (25.0-35.0); MCHC 29.4 g/dL (31.0-37.0); MCV 96.5 fL (80.0-100.0); Macrocytosis Slight; Mean Platelet Volume 7.9; Monocytes # (A) 0.6 k/uL (0-1.0); Monocytes % (A) 10 %; Neutrophils # (A) 3.9 k/uL (1.3-7.7); Neutrophils % (A) 64 %; RBC 3.18 m/uL (3.80-5.40); RDW 17.1 % (11.5-15.5); WBC (Perox) 6.13
--- NOTE | 2016-10-09 07:36 | PN ---
DATE OF SERVICE: 10/07/2016 This 85-year-old woman who was admitted with acute hypotension from possible prerenal factors and hypoalbuminemia is being closely monitored. No chest pain or palpitation. No fever. The patient also had change in mental status also. On exam, alert and oriented x2. Pulse 111, blood pressure 110/59, respirations 24, temperature is 97.6, pulse ox 93% on 2 L. HEENT: Conjunctivae normal. NECK: No jugular venous distention. CARDIOVASCULAR: S1 and S2 muffled. RESPIRATORY: Breath sounds diminished at the bases. A few scattered rhonchi. No crackles. ABDOMEN: Soft, nontender. No mass palpable. LEGS: No edema, no swelling. NERVOUS SYSTEM: No focal deficits. LABS: WBC 7.2, hemoglobin is 9.3. Creatinine is 1.1. ASSESSMENT: 1. Acute hypotension, possibly prerenal factors. 2. Hypoalbuminemia with dehydration, present on admission. 3. Increased creatinine with possible acute renal failure and acute tubular necrosis with prerenal factors present on admission secondary to dehydration. 4. She had troponin elevated up to 0.174, possible acute [id number] elevation myocardial infarction. 5. Change in mental status, metabolic encephalopathy, acute and chronic. 6. Anemia, normocytic anemia of chronic disease. 7. History of hypoglycemia. 8. History of atrial fibrillation. 9. History of coronary artery disease. 10. History of congestive heart failure with ejection fraction 40% to 45%, chronic systolic dysfunction. 11. History of cerebrovascular accident and transient ischemic attack. 12.Hard of hearing. 13. Hypertension, essential. 14. Hyperlipidemia. 15. History of gait dysfunction. 16. History of myocardial infarction. 17. History of pulmonary embolism. 18. 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 19. History of diverticulosis. 20. History of right bundle branch block. 21. History of epistaxis. 22. History of IVC filter. 23. History of bilateral cataracts. 24. Remote history of nicotine dependence. 25. FULL CODE. RECOMMENDATIONS AND DISCUSSION: Recommend to continue the current medications. Continue with monitoring and symptomatic treatment. Otherwise, increase ambulation. Guarded prognosis. Further recommendations to follow. Will repeat liver functions also tomorrow. See orders for details. MTDD
[2016-10-09 07:47] LABS: Anion Gap 7 mmol/L; Blood Urea Nitrogen 22 mg/dL (7-17); Calcium 8.2 mg/dL (8.4-10.2); Carbon Dioxide 21 mmol/L (22-30); Chloride 111 mmol/L (98-107); Glucose 90 mg/dL (74-99); Non-African American GFR(MDRD) 60 (>60 ml/min/1.73 sqM); Potassium 4.3 mmol/L (3.5-5.1); Sodium 139 mmol/L (137-145)
[2016-10-09] MEDS: METOPROLOL TARTRATE 12.5 MG TAB PO SCH (08:35)
[2016-10-09] MEDS: APIXABAN 2.5 MG TABLET PO SCH (08:35)
[2016-10-09] MEDS: PANTOPRAZOLE 40 MG TABLET PO SCH (08:35)
[2016-10-09] MEDS: B COMPLEX-VIT C-VIT E-ZINC 1 EACH TAB PO SCH (08:35)
[2016-10-09] MEDS: CHOLECALCIFEROL 1,000 UNIT TAB PO SCH (08:35)
[2016-10-09] MEDS: THIAMINE 100 MG TAB PO SCH (08:35)
[2016-10-09] MEDS: VITAMIN E (DL,TOCOPHERYL ACET) 400 UNIT CAP PO SCH (08:35)
[2016-10-09 08:38] VITALS: BP 97/62; PULSE 70; TEMP 97.6
[2016-10-09] MEDS: MULTIVITAMINS, THERA 1 EACH TAB PO SCH (11:36)
[2016-10-09] MEDS: FOLIC ACID 1 MG TAB PO SCH (11:36)
[2016-10-09 11:42] VITALS: BMI 25.2
--- NOTE | 2016-10-11 07:18 | PN ---
DATE OF SERVICE: 10/08/2016 This 85 year old woman was admitted with generalized weakness and tiredness is being closely monitored. The patient also had hypotension. The patient also had renal failure. PT/OT evaluating the patient. No cough. No fever. 2D echo with Doppler showed ejection fraction about 60-65%. On exam,alert and oriented times three. The pulse is 113, blood pressure 94/ 50. Respiratory rate 16. Temperature 97.8. Pulse ox 97% on 2 L. HEENT: Conjunctivae normal. NECK: No JVD. CVS: S1, S2 muffled. Tachycardic. RESPIRATION: Breath sounds diminished at the bases. A few scattered rhonchi. No crackles. ABDOMEN: Soft, nontender. LEGS: No edema. No swelling. 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 LABS: Creatinine 0.87. Albumin 2.2. ASSESSMENT: 1. Acute hypotension, possible prerenal factors, hypoalbuminemia with dehydration present on admission. 2. Increased creatinine with possible acute renal failure, acute tubular necrosis, prerenal factors on admission, secondary to dehydration. 3. Troponin elevated up to 0.174, possible acute non-ST segment elevation myocardial infarction. 4. Change in mental status, metabolic encephalopathy, acute on chronic. 5. Anemia, normocytic anemia, of chronic disease. 6. Hypoglycemia. 7. Atrial flutter fibrillation. 8. History of coronary artery disease/stent. 9. Congestive heart failure, ejection fraction 40-45% with chronic systolic dysfunction. 10. History of cerebrovascular accident/transient ischemic accident. 11. History of gastroesophageal reflux disease. 12. History of hard of hearing. 13. Hypertension, essential. 14. Hyperlipidemia. 15. History of gait dysfunction. 16. History of myocardial infarction. 17. Pulmonary embolism. 18 .History of recent gastrointestinal bleed with possible secondary to upper gastrointestinal bleed and secondary to AV malformation. 19. History of diverticulosis. 20. History of right bundle branch block. 21. History of epistaxis. 22. History of IVC filters. 23. History of bilateral cataracts. 24. Remote history of nicotine dependence. 25. FULL CODE. RECOMMENDATIONS AND DISCUSSION: Recommend to continue current medications. Continue symptomatic treatment. Increase ambulation. Repeat labs. Otherwise evaluation PT/OT to evaluate the patient. Further recommendations to follow. Guarded prognosis. MTDD
--- NOTE | 2016-10-18 08:45 | DS ---
DATE OF SERVICE: 10/09/2016 FINAL DIAGNOSES: 1. Acute hypotension possibly prerenal factors hypotension with dehydration present on admission. 2. Increased creatinine with possible acute renal failure, acute tubular necrosis with prerenal factors on admission secondary to dehydration. 3. Troponin elevated up to 0.174 possibly acute non-ST segment elevation myocardial infarction present on admission. 4. Change in mental status secondary to metabolic encephalopathy, acute on chronic. 5. Anemia, normocytic anemia of chronic disease. 6. Hypoglycemia. 7. Atrial flutter fibrillation. 8. History of coronary artery disease, stent. 9. History of congestive heart failure, ejection fraction 40 to 45% with chronic systolic dysfunction. 10. History of cerebrovascular disease, transient ischemic attack. 11. Gastroesophageal reflux disease. 12. Hard of hearing. 13. Hypertension, essential. 14. Hyperlipidemia. 15. History of gait dysfunction. 16. History of myocardial infarction. 17. Pulmonary embolism history. 18. History of recent gastrointestinal bleed with possibly secondary on top of gastrointestinal bleed and secondary to AV malformation. 19. History of diverticulosis. 20. History of right bundle branch block. 21. History of epistaxis. 22. History of IVC filter. 23. History of bilateral cataracts. 24. Remote history of nicotine dependence. 25. FULL CODE. DISCHARGE DISPOSITION: The patient will be discharged in a stable condition with guarded prognosis. Total time taken is 35 minutes. HISTORY OF PRESENT ILLNESS: This 85-year-old woman with past medical history of multiple medical problems admitted with hypotension, renal failure, elevated troponin, change in mental status, multiple complex medical issues treated in conjunction with Cardiology and the patient was hydrated. Patient improved significantly. On exam, vitals are stable. CARDIOVASCULAR: S1, S2. ABDOMEN: Soft. NERVOUS SYSTEM: No focal deficits. Creatinine improved to 0.89. Hemoglobin is 8. DISCHARGE ADVICE: 1. Diet is cardiac. 2. Activity limited until follow up. 3. Follow up with Dr. Sheldon in 2 to 3 days. 4. Home care is being arranged. 5. Follow up labs with Dr. Sheldon. MEDICATIONS: 1. Eliquis 2.5 mg p.o. b.i.d. 2. Vitamin D3 3000 daily. 3. Colace 100 mg p.o. b.i.d. p.r.n. 4. Doxepin 50 mg p.o. q.h.s. 5. Folic acid 1 mg p.o. daily. 6. Dania 5 mg q.6 p.r.n. 7. Lopressor 12.5 mg p.o. b.i.d. 8. Multivitamins 1 p.o. daily. 9. Nitrostat 0.4 sublingual p.r.n. 10. Protonix 40 mg daily. 11. Thiamin 100 mg daily. 12. Vitamin B complex 1 p.o. daily. 13. Vitamin E 400 units daily. Once again, the patient is being discharged in a stable condition with a guarded prognosis. [facility]
== END 2016-10-09 14:20 | disposition home health service (06) | DRG 682 ==
LOC: EC 20:02 → 6SEL 21:42 → 5MS5E 10-07 07:18
PROVIDERS: ADMIT Internal Medicine; ATTEND Internal Medicine
DX: N17.0 Acute kidney failure with tubular necrosis (principal); G93.41 Metabolic encephalopathy; I21.4 Non-ST elevation (NSTEMI) myocardial infarction; E88.09 Other disorders of plasma-protein metabolism, not elsewhere classified; I27.2 Other secondary pulmonary hypertension; I48.92 Unspecified atrial flutter; I48.0 Paroxysmal atrial fibrillation; E86.0 Dehydration; I50.22 Chronic systolic (congestive) heart failure; I13.0 Hypertensive heart and chronic kidney disease with heart failure and stage 1 through stage 4 chronic kidney disease, or unspecified chronic kidney disease; I08.1 Rheumatic disorders of both mitral and tricuspid valves; E16.2 Hypoglycemia, unspecified; E78.5 Hyperlipidemia, unspecified; D63.8 Anemia in other chronic diseases classified elsewhere; H91.90 Unspecified hearing loss, unspecified ear; I25.10 Atherosclerotic heart disease of native coronary artery without angina pectoris; I34.0 Nonrheumatic mitral (valve) insufficiency; I45.10 Unspecified right bundle-branch block; K21.9 Gastro-esophageal reflux disease without esophagitis; K64.9 Unspecified hemorrhoids; N18.9 Chronic kidney disease, unspecified; Z79.01 Long term (current) use of anticoagulants; I25.2 Old myocardial infarction; Z79.899 Other long term (current) drug therapy; Z82.49 Family history of ischemic heart disease and other diseases of the circulatory system; Z86.711 Personal history of pulmonary embolism; Z86.73 Personal history of transient ischemic attack (TIA), and cerebral infarction without residual deficits; Z87.891 Personal history of nicotine dependence; Z95.5 Presence of coronary angioplasty implant and graft
CPT/HCPCS: 71010; 80048; 80053; 81003; 83735; 84100; 84484; 85025; 85610; 85730; 87040; 87086; 93005; 93306; 96360; 99285

== ENCOUNTER 2016-11-20 22:13 | Inpatient (IN) | payer MEDICARE, BC ==
[2016-11-21] MEDS: HYDROcodone/APAP 5-325MG 1 EACH TAB PO PRN ×4 (03:18→22:02)
[2016-11-21 05:54] LABS: Anisocytosis Slight; CH 26.3; HCT 36.3 % (34.0-46.0); HDW 3.25; HGB 10.3 gm/dL (11.4-16.0); Hypochromasia Marked; MCHC 28.5 g/dL (31.0-37.0); Mean Platelet Volume 10.1; RBC 3.98 m/uL (3.80-5.40); RDW 17.6 % (11.5-15.5)
[2016-11-21 06:03] LABS: MCV 91.1 fL (80.0-100.0)
[2016-11-21 06:07] LABS: Anion Gap 6 mmol/L; Blood Urea Nitrogen 22 mg/dL (7-17); Calcium 7.8 mg/dL (8.4-10.2); Carbon Dioxide 23 mmol/L (22-30); Chloride 104 mmol/L (98-107); Glucose 90 mg/dL (74-99); Magnesium 1.7 mg/dL (1.6-2.3); Non-African American GFR(MDRD) 52 (>60 ml/min/1.73 sqM); Potassium 3.7 mmol/L (3.5-5.1); Sodium 133 mmol/L (137-145)
--- NOTE | 2016-11-21 07:43 | XR ---
EXAMINATION TYPE: XR chest 2V DATE OF EXAM: 11/21/2016 COMPARISON: Prior chest x-ray 10/05/2016 HISTORY: Shortness of breath TECHNIQUE: Frontal and lateral views of the chest are obtained. FINDINGS: Thoracic compression deformities present. There is a kyphosis. Bone mineralization is redu mina. No evident pneumothorax or pleural effusion. Heart is enlarged. Interstitium is increased. IMPRESSION: Suspect underlying interstitial lung disease, correlate to exclude pulmonary venous hype rtension and interstitial edema, emphysema and interstitial lung disease, cardiomegaly and additional findings above
[2016-11-21] MEDS: DOCUSATE 100 MG CAP PO SCH ×2 (08:24→19:50)
[2016-11-21] MEDS: FUROSEMIDE 10 MG/ML 2 ML VIAL IV SCH ×2 (08:24→19:50)
[2016-11-21] MEDS: FOLIC ACID 1 MG TAB PO SCH (08:24)
[2016-11-21] MEDS: APIXABAN 2.5 MG TABLET PO SCH ×2 (08:24→19:49)
[2016-11-21] MEDS: CHOLECALCIFEROL 1,000 UNIT TAB PO SCH (08:24)
[2016-11-21] MEDS: VITAMIN E (DL,TOCOPHERYL ACET) 400 UNIT CAP PO SCH (08:25)
[2016-11-21] MEDS: PANTOPRAZOLE 40 MG TABLET PO SCH (08:25)
[2016-11-21] MEDS: THIAMINE 100 MG TAB PO SCH (08:25)
[2016-11-21] MEDS ORDERED: METOPROLOL TARTRATE 25 MG TAB PO SCH (09:00)
[2016-11-21] MEDS ORDERED: B COMPLEX-VIT C-VIT E-ZINC 1 EACH TAB PO SCH (12:00)
[2016-11-21] MEDS ORDERED: MULTIVITAMINS, THERA 1 EACH TAB PO SCH (12:00)
[2016-11-21] MEDS: LEVOFLOXACIN 500MG-D5W PMX 500 MG in DEXTROSE/WATER 1 100ML.BAG IVPB SCH (12:52)
[2016-11-21 13:28] VITALS: BMI 27.0
[2016-11-21] MEDS ORDERED: FUROSEMIDE 10 MG/ML 4 ML VIAL IV STA (14:10)
[2016-11-21] MEDS ORDERED: FUROSEMIDE 10 MG/ML 4 ML VIAL ONE (14:10)
--- NOTE | 2016-11-21 14:20 | P.CRDCN ---
History of Present Illness Consult date: 11/21/16 History of present illness: This is a pleasant 86-year-old female patient with a past medical history significant for chronic atrial flutter, congestive heart failure with preserved LV function, hypertension, dyslipidemia, as well as multiple comorbid conditions including CAD and prior stenting, was transferred from [facility] to [facility]. The patient presented to the emergency room complaining of heart racing and fluttering. He side that she was also more short of breath. She was found to be in atrial flutter with uncontrolled heart rate and she was transferred here. Currently the patient continues to be in atrial flutter with heart rate around 110 beats per minutes. She denies having any chest pain or discomfort for. She is on anticoagulation using Eliquis. I am going to increase the dose of metoprolol to 50 mg by mouth twice a day for better heart rate control. The blood pressure has been good overall. Continue anticoagulation. I will continue the Lasix IV with monitoring the kidney function and electrolytes the patient seems to be in mild right heart failure with bilateral lower extremities edema. Past Medical History Past Medical History: Atrial Fibrillation, Atrial Flutter, Coronary Artery Disease (CAD), Heart Failure, CVA/TIA, GERD/Reflux, Hearing Disorder / Deafness , Hyperlipidemia, Hypertension, Myocardial Infarction (CO), Pulmonary Embolus ( PE), Rheumatoid Arthritis (RA) Additional Past Medical History / Comment(s): 11/16/2012 CO cath with stent, hard of hearing-wears bilat hearing aids, DIVERTICULOSIS, RBBB, EPISTAXIS, CKD. Last Myocardial Infarction Date:: 2012 History of Any Multi-Drug Resistant Organisms: None Reported Past Surgical History: Cholecystectomy, Heart Catheterization With Stent, Hysterectomy Additional Past Surgical History / Comment(s): IVC FILTER , JANNA CATARACTS. Past Anesthesia/Blood Transfusion Reactions: No Reported Reaction Date of Last Stent Placement:: 2012 Past Psychological History: No Psychological Hx Reported Additional Psychological History / Comment(s): PT IS ALERT AND ORIENTATED X3. LIVES WITH DAUGHTER AND SON. PT AMBULATES USING WALKER AND DAUGHTER ASSISTS PT WITH SHOWERS. PT HAS 8 CHILDREN AND WORKED IN [employer] AND [employer] UNTIL LONGTERM. Smoking Status: Former smoker Past Alcohol Use History: None Reported Additional Past Alcohol Use History / Comment(s): STARTED SMOKING AT AGE 23 SMOKED 1PPD , QUIT MAY. Past Drug Use History: None Reported - Past Family History Sister(s) Family Medical History: Cancer Additional Family Medical History / Comment(s): SISTER HAD LIVER CANCER, AT 80 YEARS OLD Father Additional Family Medical History / Comment(s): heart issues Mother History Unknown: Yes Additional Family Medical History / Comment(s): unknown Brother(s) Additional Family Medical History / Comment(s): HEART SURGERY, 2 BROTHERS OF HEART ATTACKS AND 1 WAS KILLED IN A CAR ACCIDENT Daughter(s) History Unknown: Yes Family Medical History: No Reported History Son(s) Family Medical History: Diabetes Mellitus Medications and Allergies Home Medications Medication Instructions Recorded Confirmed Type Doxepin HCl [SINEquan] 50 mg PO HS 11/04/14 11/21/16 History Nitroglycerin Sl Tabs [Nitrostat] 0.4 mg SUBLINGUAL Q5M PRN 11/04/14 11/21/16 History Cholecalciferol [Vitamin D3] 1,000 unit PO DAILY 07/07/16 11/21/16 History Folic Acid 1 mg PO DAILY 07/07/16 11/21/16 History HYDROcodone/APAP 5-325MG [[place] 1 tab PO Q6HR PRN 10/05/16 11/21/16 History 5-325] Allopurinol [Zyloprim] 100 mg PO DAILY 11/21/16 11/21/16 History B Complex-Vit C-Vit E-Zinc [Z-Bec] 1 tab PO DAILY 11/21/16 11/21/16 History Bumetanide [Bumetanide] 2 mg PO DAILY 11/21/16 11/21/16 History Melatonin 3 mg PO HS PRN 11/21/16 11/21/16 History Metoprolol Tartrate [Lopressor] 25 mg PO BID 11/21/16 11/21/16 History Multivit-Min/FA/Lycopen/Lutein 1 tab PO DAILY 11/21/16 11/21/16 History [Centrum Silver Tablet] Nitrofurantoin Monohyd/M-Cryst 100 mg PO Q12HR 11/21/16 11/21/16 History [Macrobid] Potassium Chloride [Klor-Con 20] 20 meq PO DAILY 11/21/16 11/21/16 History Ranitidine HCl [Zantac] 150 mg PO HS PRN 11/21/16 11/21/16 History Allergies Allergy/AdvReac Type Severity Reaction Status Date / Time Penicillins AdvReac Swelling Verified 11/21/16 00:50 Physical Exam Vitals: Vital Signs Temp Pulse Resp BP Pulse Ox 11/21/16 08:00 118 H 124/80 90 L 11/21/16 04:00 97.3 F L 104 H 16 121/76 96 Intake and Output 11/20/16 11/21/16 11/21/16 22:59 06:59 14:59 Intake Total 180 Output Total 600 Balance -600 180 Intake: Oral 180 Output: Urine 600 Other: Voiding Method Indwelling Catheter Indwelling Catheter # Voids 1 Weight 67 kg 67 kg Patient Weight 11/22/16 06:59 Weight 67 kg - Constitutional General appearance: no acute distress - Respiratory Respiratory: bilateral: rales - Cardiovascular Rhythm: irregularly irregular Heart sounds: normal: S1, S2 Results 11/21/16 05:39 11/21/16 05:37 CBC 11/21/16 Range/Units 05:39 WBC 10.0 (3.8-10.6) k/uL RBC 3.98 (3.80-5.40) m/uL Hgb 10.3 L (11.4-16.0) gm/dL Hct 36.3 (34.0-46.0) % Plt Count 141 L (150-450) k/uL Comprehensive Metabolic Panel 11/21/16 Range/Units 05:37 Sodium 133 L (137-145) mmol/L Potassium 3.7 (3.5-5.1) mmol/L Chloride 104 (98-107) mmol/L Carbon Dioxide 23 (22-30) mmol/L BUN 22 H (7-17) mg/dL Creatinine 1.00 (0.52-1.04) mg/dL Glucose 90 (74-99) mg/dL Calcium 7.8 L (8.4-10.2) mg/dL Current Medications Generic Name Dose Route Start Last Admin Trade Name Freq PRN Reason Stop Dose Admin Hydrocodone Bitart/Acetaminophen 1 each 11/21/16 02:20 11/21/16 08:25 [place] 5-325 PO 1 each Q6HR PRN Administration Pain Apixaban 2.5 mg 11/21/16 09:00 11/21/16 08:24 Eliquis PO 2.5 mg BID TRANG Administration Cholecalciferol 1,000 unit 11/21/16 09:00 11/21/16 08:24 Vitamin D3 PO 1,000 unit DAILY TRANG Administration Docusate Sodium 100 mg 11/21/16 09:00 11/21/16 08:24 Colace PO 100 mg BID TRANG Administration Doxepin HCl 50 mg 11/21/16 21:00 Sinequan PO HS [facility] Folic Acid 1 mg 11/21/16 09:00 11/21/16 08:24 Folic Acid PO 1 mg DAILY TRANG Administration Furosemide 20 mg 11/21/16 09:00 11/21/16 08:24 Lasix IV 20 mg Q12HR TRANG Administration Levofloxacin 500 mg/ IV 100 mls @ 100 mls/hr 11/21/16 12:00 11/21/16 12:52 Solution IVPB 100 mls/hr Q24H TRANG Administration Metoprolol Tartrate 25 mg 11/21/16 09:00 11/21/16 08:24 Lopressor PO 25 mg BID TRANG Administration Multivitamins 1 each 11/21/16 12:00 11/21/16 12:52 Theragran PO 1 each DAILY@1200 TRANG Administration Pantoprazole Sodium 40 mg 11/21/16 09:00 11/21/16 08:25 Protonix PO 40 mg DAILY TRANG Administration Thiamine HCl 100 mg 11/21/16 09:00 11/21/16 08:25 Vitamin B-1 PO 100 mg DAILY TRANG Administration Vitamin B Complex/Vit C/Vit E/Zinc 1 each 11/21/16 12:00 11/21/16 12:52 Z-Bec PO 1 each DAILY@1200 TRANG Administration Vitamin E 400 unit 11/21/16 09:00 11/21/16 08:25 Vitamin E PO 400 unit DAILY TRANG Administration Intake and Output 11/20/16 11/21/16 11/21/16 22:59 06:59 14:59 Intake Total 180 Output Total 600 Balance -600 180 Intake: Oral 180 Output: Urine 600 Other: Voiding Method Indwelling Catheter Indwelling Catheter # Voids 1 Weight 67 kg 67 kg Patient Weight 11/22/16 06:59 Weight 67 kg 11/21/16 05:39 11/21/16 05:37 Assessment and Plan Plan: This is a pleasant 86-year-old female patient who presented with heart racing and fluttering. The patient currently is in atrial flutter was uncontrolled heart rate and also she is in mild heart failure. I am going to increase the dose of metoprolol to 50 mg by mouth twice a day. Continue the Lasix IV. Continue anticoagulation. Follow-up with the patient.
[2016-11-21] MEDS: DOXEPIN 25 MG CAP PO SCH (19:50)
[2016-11-21] MEDS: METOPROLOL TARTRATE 50 MG TAB PO SCH (19:50)
[2016-11-21] MEDS: NITROFURANTOIN MONOHYD/M-CRYST 100 MG CAP PO SCH (19:51)
[2016-11-21] MEDS: MELATONIN 3 MG TABLET PO PRN (22:03)
[2016-11-22 05:54] LABS: Anisocytosis Slight; Basophils % (A) 1 %; CH 26.1; CHCM 28.1; Eosinophils # (A) 0.1 k/uL (0-0.7); Eosinophils % (A) 1 %; HDW 3.24; HGB 10.1 gm/dL (11.4-16.0); Hypochromasia Marked; Luc # (Auto) 0.18; Luc % (Auto) 3; Lymphocytes # (A) 1.3 k/uL (1.0-4.8); Lymphocytes % (A) 19 %; MCH 26.2 pg (25.0-35.0); MCHC 28.2 g/dL (31.0-37.0); MCV 93.2 fL (80.0-100.0); Mean Platelet Volume 9.5; Monocytes # (A) 0.7 k/uL (0-1.0); Monocytes % (A) 11 %; Neutrophils # (A) 4.3 k/uL (1.3-7.7); Neutrophils % (A) 65 %; RBC 3.86 m/uL (3.80-5.40); RDW 17.6 % (11.5-15.5); WBC 6.6 k/uL (3.8-10.6); WBC (Perox) 6.65
[2016-11-22 06:10] LABS: Anion Gap 6 mmol/L; Blood Urea Nitrogen 27 mg/dL (7-17); Calcium 7.5 mg/dL (8.4-10.2); Carbon Dioxide 25 mmol/L (22-30); Chloride 104 mmol/L (98-107); Glucose 79 mg/dL (74-99); Non-African American GFR(MDRD) 50 (>60 ml/min/1.73 sqM); Potassium 3.6 mmol/L (3.5-5.1); Sodium 135 mmol/L (137-145)
[2016-11-22] MEDS: HYDROcodone/APAP 5-325MG 1 EACH TAB PO PRN ×3 (08:34→20:19)
[2016-11-22] MEDS: METOPROLOL TARTRATE 50 MG TAB PO SCH ×2 (08:45→20:20)
[2016-11-22] MEDS: PANTOPRAZOLE 40 MG TABLET PO SCH (08:46)
[2016-11-22] MEDS ORDERED: FUROSEMIDE 10 MG/ML 2 ML VIAL IV SCH (09:05)
--- NOTE | 2016-11-22 09:09 | P.PN ---
Subjective Principal diagnosis: Shortness of breath This is a pleasant 86-year-old female patient with a past medical history significant for chronic atrial flutter, congestive heart failure with preserved LV function, hypertension, dyslipidemia, as well as multiple comorbid conditions including CAD and prior stenting, was transferred from [facility] to [facility]. The patient was diagnosed with atrial flutter with uncontrolled heart rate as well as she was in congestive heart failure secondary to diastolic dysfunction. On follow-up with her today, she continues not feeling well and continues to be short of breath. The physical examination showed bilateral crackles in both lung lopez. The heart rate has been slightly better after increase the dose of metoprolol to 50 mg by mouth twice a day. Objective - Vital Signs Vital signs: Vital Signs Temp 96.7 F L 11/22/16 08:00 Pulse 101 H 11/22/16 08:00 Resp 24 11/22/16 08:00 BP 105/62 11/22/16 08:00 Pulse Ox 97 11/22/16 08:31 Intake & Output 11/21/16 11/22/16 11/22/16 18:59 06:59 18:59 Intake Total 480 240 Output Total 900 Balance 480 -900 240 Weight 67 kg 65.3 kg Intake: Intake, IV Titration 100 Amount Levofloxacin 500Mg-D5w 100 Pmx 500 mg In Dextrose/ Water 1 100ml.bag @ 100 mls/hr IVPB Q24H [facility] Rx#: [id number] Oral 380 240 Output: Urine 900 Other: Voiding Method Indwelling Catheter Indwelling Catheter # Voids 1 - Constitutional General appearance: Present: no acute distress - Respiratory Respiratory: bilateral: rales - Cardiovascular Rhythm: irregularly irregular Heart sounds: normal: S1, S2 - Labs CBC & Chem 7: 11/22/16 05:26 11/22/16 05:26 Labs: Abnormal Lab Results - Last 24 Hours (Table) 11/22/16 11/22/16 Range/Units 05:26 05:26 Hgb 10.1 L (11.4-16.0) gm/dL MCHC 28.2 L (31.0-37.0) g/dL RDW 17.6 H (11.5-15.5) % Sodium 135 L (137-145) mmol/L BUN 27 H (7-17) mg/dL Calcium 7.5 L (8.4-10.2) mg/dL Assessment and Plan Plan: We will continue the current above dose of metoprolol. I'm going to increase the dose of Lasix to 40 mg IV twice a day. Continue monitor the kidney function and electrolytes.
[2016-11-22] MEDS: DOCUSATE 100 MG CAP PO SCH ×2 (09:39→20:20)
[2016-11-22] MEDS: ALLOPURINOL 100 MG TAB PO SCH (09:39)
[2016-11-22] MEDS: THIAMINE 100 MG TAB PO SCH (09:39)
[2016-11-22] MEDS: CHOLECALCIFEROL 1,000 UNIT TAB PO SCH (09:39)
[2016-11-22] MEDS: APIXABAN 2.5 MG TABLET PO SCH ×2 (09:40→20:20)
[2016-11-22] MEDS: NITROFURANTOIN MONOHYD/M-CRYST 100 MG CAP PO SCH (09:40)
[2016-11-22] MEDS: POTASSIUM CHLORIDE ER 20 MEQ TAB.ER PO SCH (09:40)
[2016-11-22] MEDS: VITAMIN E (DL,TOCOPHERYL ACET) 400 UNIT CAP PO SCH (09:40)
[2016-11-22] MEDS: FOLIC ACID 1 MG TAB PO SCH (09:40)
[2016-11-22] MEDS: FUROSEMIDE 10 MG/ML 4 ML VIAL IV SCH ×2 (09:49→20:20)
[2016-11-22] MEDS: B COMPLEX-VIT C-VIT E-ZINC 1 EACH TAB PO SCH (12:12)
[2016-11-22] MEDS: MULTIVITAMINS, THERA 1 EACH TAB PO SCH (12:12)
--- NOTE | 2016-11-22 12:32 | HP ---
DATE OF SERVICE: 11/21/2016 CHIEF COMPLAINTS: Palpitations. HISTORY OF PRESENT ILLNESS: This 86-year-old woman with past medical history of multiple medical problems including history of CHF, history of atrial fibrillation, history of pulmonary embolism, being followed by Dr. Sheldon in the outpatient setting was found to have palpitations and found to be in atrial fibrillation with fast ventricular rate at the [facility] and the patient was transferred to [facility] for direct admission and admitted for further evaluation and treatment. The patient also complained of generalized edema also which was increasing with some shortness of breath. There is no history of any fever, rigors or chills. No history of headache, loss of consciousness or seizures. PAST MEDICAL HISTORY: History of recent hypotension with dehydration, history of renal failure, history of change in mental status and multiple other medical problems. Medications prior to admission include home medications: 1. Vitamin E 400 units daily. 2. Zantac 150 mg q.h.s p.r.n 3. Klor-Con 20 mg. 4. Protonix 40 mg daily. 5. Nitrostat 0.4 sublingual p.r.n 6. Macrobid 100 mg p.o b.i.d. 7. Centrum 1 p.o daily. 8. Lopressor 25 mg p.o bid 9. Melatonin 3 mg q.h.s p.r.n 10. [place] 5 mg q.6 p.r.n 11. Folic acid 1 mg p.o. 12. Sinequan 50 mg q.h.s 13. Colace 100 mg p.o bid 14. Vitamin D3 1000 daily. 15. Bumex 2 mg p.o daily. 16. Zebec 1 mg p.o daily. 17. Eliquis 2.5 mg p.o. b.i.d. 18. Zyloprim 100 mg p.o. daily. ALLERGIES: PENICILLIN. FAMILY HISTORY: History of heart disease in the family. SOCIAL HISTORY: Previous history of smoking. No history of current smoking or alcohol intake. REVIEW OF SYSTEMS: ENT: No diminished hearing or vision. CARDIOVASCULAR: As mentioned earlier. RESPIRATORY: As mentioned earlier. GI: No nausea. : No dysuria. NERVOUS SYSTEM: No numbness or weakness. ALLERGY/IMMUNOLOGY: No asthma or hayfever. MUSCULOSKELETAL: As mentioned earlier. HEMATOLOGY/ONCOLOGY: No history of anemia. ENDOCRINE: As mentioned earlier. CONSTITUTIONAL: As mentioned earlier. DERMATOLOGY: Negative. RHEUMATOLOGY: Negative. PSYCHIATRY: As mentioned earlier. PHYSICAL EXAMINATION: The patient is alert and oriented x3. Pulse is 118 irregular, blood pressure 125/80, respirations 16, temperature 98.6, pulse ox 90 % on 4-L. HEENT: Conjunctivae normal. NECK: No jugular venous distention. CARDIOVASCULAR: S1, S2 irregular. No murmurs. RESPIRATORY: Breath sounds diminished at the bases. A few scattered rhonchi and crackles. ABDOMEN: Soft, nontender, no mass palpable. LEGS: No edema, no swelling. NERVOUS SYSTEM: Higher function as mentioned. Moves all four limbs. No focal motor sensory deficits. LYMPHATICS: No lymphadenopathy in the neck, axillae or groin. SKIN: No rash, ulcer or bleeding. Labs at this time show WBC 10, hemoglobin 10.3. Otherwise sodium 133. ASSESSMENT: 1. Atrial fibrillation with fast ventricular rate. 2. Chronic heart failure with acute exacerbation with acute on chronic systolic dysfunction with ejection fraction 40 to 45%. 3. Anemia. 4. Hyponatremia. 5. History of recent hypotension. 6. History of recent renal failure. 7. History of atrial flutter fibrillation. 8. History of coronary artery disease and stent. 9. History of cerebrovascular disease and transient ischemic attack. 10. History of gastroesophageal reflux disease. 11. History of hard of hearing. 12. Hypertension. 13. Hyperlipidemia. 14. History of gait dysfunction. 15. History of pulmonary embolism. 16. 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 17. History of IVC filter. 18. FULL CODE with instructions. RECOMMENDATIONS AND DISCUSSION: In this 86-year-old woman who presented with multiple complex medical issues, we well monitor the patient closely. Continue the current medications. Continue symptomatic treatment. We will follow the patient closely with you. Small dose of diuretics will be initiated intravenously. Monitor fluid and electrolyte balance closely. Increase the beta- blockers. Closely follow with Cardiology. Otherwise symptomatic treatment will be provided. Guarded prognosis because of multiple complex medical issues. The home medications also will be initiated including multivitamins. Further recommendations to follow. See orders for further details. We will also closely follow with Dr. Sheldon also. [facility]ITAL[facility]
[2016-11-22] MEDS: LEVOFLOXACIN 500MG-D5W PMX 500 MG in DEXTROSE/WATER 1 100ML.BAG IVPB SCH (12:46)
[2016-11-22] MEDS: MELATONIN 3 MG TABLET PO PRN (20:19)
[2016-11-22] MEDS: DOXEPIN 25 MG CAP PO SCH (20:20)
[2016-11-23] MEDS: HYDROcodone/APAP 5-325MG 1 EACH TAB PO PRN ×4 (03:58→21:45)
[2016-11-23 06:34] LABS: Anisocytosis Slight; Basophils % (A) 1 %; CH 26.2; CHCM 28.3; Eosinophils # (A) 0.1 k/uL (0-0.7); Eosinophils % (A) 2 %; HCT 38.4 % (34.0-46.0); HDW 3.22; HGB 10.9 gm/dL (11.4-16.0); Hypochromasia Marked; Luc # (Auto) 0.19; Luc % (Auto) 3; Lymphocytes # (A) 1.3 k/uL (1.0-4.8); Lymphocytes % (A) 18 %; MCH 26.4 pg (25.0-35.0); MCHC 28.5 g/dL (31.0-37.0); MCV 92.9 fL (80.0-100.0); Mean Platelet Volume 9.9; Monocytes # (A) 0.8 k/uL (0-1.0); Monocytes % (A) 11 %; Neutrophils # (A) 4.7 k/uL (1.3-7.7); Neutrophils % (A) 67 %; RBC 4.13 m/uL (3.80-5.40); RDW 17.8 % (11.5-15.5); WBC 7.1 k/uL (3.8-10.6); WBC (Perox) 7.66
[2016-11-23 06:57] LABS: Potassium 3.9 mmol/L (3.5-5.1)
[2016-11-23] MEDS: ALLOPURINOL 100 MG TAB PO SCH (09:19)
[2016-11-23] MEDS: FUROSEMIDE 10 MG/ML 4 ML VIAL IV SCH (09:20)
[2016-11-23] MEDS: APIXABAN 2.5 MG TABLET PO SCH ×2 (09:20→20:01)
[2016-11-23] MEDS: CHOLECALCIFEROL 1,000 UNIT TAB PO SCH (09:20)
[2016-11-23] MEDS: DOCUSATE 100 MG CAP PO SCH ×2 (09:20→20:01)
[2016-11-23] MEDS: FOLIC ACID 1 MG TAB PO SCH (09:20)
[2016-11-23] MEDS: VITAMIN E (DL,TOCOPHERYL ACET) 400 UNIT CAP PO SCH (09:21)
[2016-11-23] MEDS: PANTOPRAZOLE 40 MG TABLET PO SCH (09:21)
[2016-11-23] MEDS: MULTIVITAMINS, THERA 1 EACH TAB PO SCH (09:21)
[2016-11-23] MEDS: THIAMINE 100 MG TAB PO SCH (09:21)
[2016-11-23] MEDS: METOPROLOL TARTRATE 50 MG TAB PO SCH (09:21)
[2016-11-23] MEDS: B COMPLEX-VIT C-VIT E-ZINC 1 EACH TAB PO SCH (09:21)
[2016-11-23] MEDS: POTASSIUM CHLORIDE ER 20 MEQ TAB.ER PO SCH (09:21)
--- NOTE | 2016-11-23 09:43 | P.PN ---
Subjective Principal diagnosis: Shortness of breath This is a pleasant 86-year-old female patient with a past medical history significant for chronic atrial flutter, congestive heart failure with preserved LV function, hypertension, dyslipidemia, as well as multiple comorbid conditions including CAD and prior stenting, [facility] The patient was diagnosed with atrial flutter with uncontrolled heart rate as well as she was in congestive heart failure secondary to diastolic dysfunction. On follow-up with her today, she continues not feeling well and continues to be short of breath. The physical examination showed bilateral crackles in both lung lopez, and also severe pitting edema of the lower extremities. Hemodynamically, she is a slightly hypotensive with a systolic blood pressure below 90. Objective - Vital Signs Vital signs: Vital Signs Temp 96.9 F L 11/23/16 04:00 Pulse 108 H 11/23/16 04:00 Resp 18 11/23/16 04:00 BP 93/54 11/23/16 04:00 Pulse Ox 96 11/23/16 04:00 Intake & Output 11/22/16 11/23/16 11/23/16 18:59 06:59 18:59 Intake Total 970 50 Output Total 600 500 Balance 370 -500 50 Weight 65.6 kg Intake: IV 100 Levofloxacin 500Mg-D5w 100 Pmx 500 mg In Dextrose/ Water 1 100ml.bag @ 100 mls/hr IVPB Q24H [facility] Rx#: [id number] Oral 870 50 Output: Urine 600 500 Other: Voiding Method Indwelling Catheter Indwelling Catheter # Voids 1 # Bowel Movements 0 1 - Constitutional General appearance: Present: no acute distress - Respiratory Respiratory: bilateral: rales - Cardiovascular Rhythm: irregularly irregular Heart sounds: normal: S1 - Labs CBC & Chem 7: 11/23/16 05:35 11/23/16 05:35 Labs: Abnormal Lab Results - Last 24 Hours (Table) 11/23/16 11/23/16 Range/Units 05:35 05:35 Hgb 10.9 L (11.4-16.0) gm/dL MCHC 28.5 L (31.0-37.0) g/dL RDW 17.8 H (11.5-15.5) % Sodium 136 L (137-145) mmol/L BUN 31 H (7-17) mg/dL Creatinine 1.05 H (0.52-1.04) mg/dL Calcium 8.0 L (8.4-10.2) mg/dL Assessment and Plan Plan: In view of the marginally low blood pressure and I will decrease the dose of Lasix to 40 mg IV daily. Continue monitor the kidney function and electrolytes. And also I would decrease the dose of metoprolol to 25 mg by mouth 3 times a day. We'll continue following up with the patient.
[2016-11-23] MEDS: FUROSEMIDE 40 MG TAB PO SCH (15:13)
[2016-11-23] MEDS: METOPROLOL TARTRATE 25 MG TAB PO SCH ×2 (15:14→20:03)
[2016-11-23] MEDS: FUROSEMIDE 10 MG/ML 2 ML VIAL IV SCH (16:54)
--- NOTE | 2016-11-23 17:18 | PN ---
DATE OF SERVICE: 11/22/2016 This 86-year-old woman who was admitted with palpitations, had features of atrial fibrillation with fast ventricular rate. The patient also had a CHF acute exacerbation. Patients Lasix dose was increased. The patient complaining of tiredness, weakness also. ECF rehab also being planned. PAST MEDICAL HISTORY: Reviewed. REVIEW OF SYSTEMS: CARDIOVASCULAR: As mentioned earlier. RESPIRATORY: As mentioned earlier. GI: No nausea. : No dysuria. NERVOUS SYSTEM: No numbness or weakness. Current medications are reviewed and include: 1. [place] 5 mg q.6 p.r.n. 2. Zyloprim 100 mg daily. 3. 250 mg bid 4. Vitamin D3. 5. Pepcid. 6. Folic acid. 7. Lasix. 8. Lopressor. 9. Multivitamins. 10. Macrobid. 11. Vitamin B1. 12. Vitamin E. PHYSICAL EXAMINATION: The patient is alert and oriented x3. Pulse is 81, blood pressure 103/60, respirations 24, temperature 96.4, pulse ox 99% on 2-L. HEENT: Conjunctivae normal. NECK: No jugular venous distention. CARDIOVASCULAR: S1, S2. RESPIRATORY: Breath sounds diminished at the bases. A few scattered rhonchi and crackles. ABDOMEN: Soft, nontender. No mass palpable. LEGS: No edema. NERVOUS SYSTEM: Higher function as mentioned. Moves all four limbs. No focal motor sensory deficits. LYMPHATICS: No lymphadenopathy in the neck, axillae or groin. SKIN: No rash, ulcer or bleeding. Labs at this time show WBC 6.6, hemoglobin 10.1, sodium 135. ASSESSMENT: 1. Atrial fibrillation flutter with fast ventricular rate. 2. Congestive heart failure acute exacerbation, acute on chronic, systolic dysfunction with ejection fraction 40 to 45%. 3. Anemia. 4. Hyponatremia. 5. Gait dysfunction. RECOMMENDATIONS AND DISCUSSION: I recommend to continue the current medications, continue monitoring, continue symptomatic treatment. Increase ambulation. Repeat labs. Continue the diuretics. Monitor electrolytes closely. Guarded prognosis because of multiple complex medical issues. Further recommendations to follow. MTDD
[2016-11-23] MEDS ORDERED: FUROSEMIDE 10 MG/ML 2 ML VIAL IV ONE (19:51)
[2016-11-23] MEDS: DOXEPIN 25 MG CAP PO SCH (20:01)
--- NOTE | 2016-11-23 23:18 | XR ---
EXAM: XR Chest, 1 View CLINICAL HISTORY: Reason: Dyspnea TECHNIQUE: Frontal view of the chest. COMPARISON: chest radiography FINDINGS: Lungs: Dense airspace disease at the left lower lung obscuring the left heart margin concerning for inferior lingula airspace disease or pneumonia. Aspiration can have a similar appearance. Vascular congestion and interstitial edema/groundglass opacities involving the lungs. Bilateral pleural effusions suspected. Cardiomegaly. Pleural space: Atherosclerotic calcifications of the thoracic aortic arch. No visible pneumothorax. Diffuse osteopenia. Study is limited as patient is rotated to the left side. Heart: See above. Mediastinum: Unremarkable. Bones/joints: See above. IMPRESSION: Overall, findings can be seen with congestive heart exacerbation. Superimposed pneumonia particularly at the left base is not excluded.
[2016-11-24] MEDS: MELATONIN 3 MG TABLET PO PRN ×2 (00:31→20:32)
[2016-11-24] MEDS ORDERED: ACETAMINOPHEN TAB 325 MG TAB PO STA (00:32)
[2016-11-24] MEDS: HYDROcodone/APAP 5-325MG 1 EACH TAB PO PRN ×4 (02:48→21:32)
[2016-11-24 06:05] LABS: Anisocytosis Slight; Basophils # (A) 0.1 k/uL (0-0.2); Basophils % (A) 1 %; CH 26.4; CHCM 28.8; Eosinophils # (A) 0.1 k/uL (0-0.7); Eosinophils % (A) 1 %; HCT 38.1 % (34.0-46.0); HDW 3.16; HGB 10.7 gm/dL (11.4-16.0); Hypochromasia Marked; Luc # (Auto) 0.17; Luc % (Auto) 2; Lymphocytes # (A) 1.4 k/uL (1.0-4.8); Lymphocytes % (A) 18 %; MCH 25.7 pg (25.0-35.0); Mean Platelet Volume 9.8; Monocytes # (A) 0.7 k/uL (0-1.0); Monocytes % (A) 8 %; Neutrophils # (A) 5.3 k/uL (1.3-7.7); Neutrophils % (A) 69 %; RBC 4.14 m/uL (3.80-5.40); RDW 18.1 % (11.5-15.5); WBC 7.7 k/uL (3.8-10.6); WBC (Perox) 7.89
[2016-11-24 06:12] LABS: Calcium 8.6 mg/dL (8.4-10.2); Potassium 4.4 mmol/L (3.5-5.1)
[2016-11-24] MEDS: FUROSEMIDE 40 MG TAB PO SCH ×2 (09:00→18:34)
[2016-11-24] MEDS: CHOLECALCIFEROL 1,000 UNIT TAB PO SCH (09:00)
[2016-11-24] MEDS: THIAMINE 100 MG TAB PO SCH (09:00)
[2016-11-24] MEDS: PANTOPRAZOLE 40 MG TABLET PO SCH (09:00)
[2016-11-24] MEDS: B COMPLEX-VIT C-VIT E-ZINC 1 EACH TAB PO SCH (09:00)
[2016-11-24] MEDS: DOCUSATE 100 MG CAP PO SCH ×2 (09:00→20:28)
[2016-11-24] MEDS: METOPROLOL TARTRATE 25 MG TAB PO SCH ×2 (09:00→20:29)
[2016-11-24] MEDS ORDERED: FUROSEMIDE 10 MG/ML 4 ML VIAL IV SCH (09:00)
[2016-11-24] MEDS: POTASSIUM CHLORIDE ER 20 MEQ TAB.ER PO SCH (09:01)
[2016-11-24] MEDS: APIXABAN 2.5 MG TABLET PO SCH ×2 (09:01→20:28)
[2016-11-24] MEDS: ALLOPURINOL 100 MG TAB PO SCH (09:01)
[2016-11-24] MEDS: FOLIC ACID 1 MG TAB PO SCH (09:01)
[2016-11-24] MEDS: MULTIVITAMINS, THERA 1 EACH TAB PO SCH (09:02)
--- NOTE | 2016-11-24 09:28 | P.PN ---
Subjective Principal diagnosis: Shortness of breath This is a pleasant 86-year-old female patient with a past medical history significant for chronic atrial flutter, congestive heart failure with preserved LV function, hypertension, dyslipidemia, as well as multiple comorbid conditions including CAD and prior stenting, was transferred from [facility] to [facility]. The patient was diagnosed with atrial flutter with uncontrolled heart rate as well as she was in congestive heart failure secondary to diastolic dysfunction. On follow-up with her today, she continues not feeling well and continues to be short of breath. The physical examination showed bilateral crackles in both lung lopez, and also severe pitting edema of the lower extremities. Hemodynamically, she is a slightly hypotensive with a systolic blood pressure below 90. I will continue the current above dose of Lasix IV and decrease the dose of metoprolol in view of the low blood pressure. Also the kidney function is a slightly worse today which is likely secondary to hypotension. Objective - Vital Signs Vital signs: Vital Signs Temp 98.0 F 11/24/16 08:00 Pulse 71 11/24/16 08:00 Resp 16 11/24/16 08:00 BP 96/54 11/24/16 08:00 Pulse Ox 97 11/24/16 08:00 Intake & Output 11/23/16 11/24/16 11/24/16 18:59 06:59 18:59 Intake Total 175 Output Total 800 700 Balance -625 -700 Weight 66.1 kg Intake: Oral 175 Output: Urine 800 700 Other: Voiding Method Indwelling Catheter Indwelling Catheter # Bowel Movements 0 - Constitutional General appearance: Present: no acute distress - Respiratory Respiratory: bilateral: rales - Cardiovascular Rhythm: irregularly irregular Heart sounds: normal: S1, S2 - Labs CBC & Chem 7: 11/24/16 05:46 11/24/16 05:43 Labs: Abnormal Lab Results - Last 24 Hours (Table) 11/24/16 11/24/16 Range/Units 05:43 05:46 Hgb 10.7 L (11.4-16.0) gm/dL MCHC 28.0 L (31.0-37.0) g/dL RDW 18.1 H (11.5-15.5) % BUN 36 H (7-17) mg/dL Creatinine 1.27 H (0.52-1.04) mg/dL Glucose 112 H (74-99) mg/dL Assessment and Plan Plan: In view of the marginally low blood pressure and I will decrease the dose of Lasix to 40 mg IV daily. Continue monitor the kidney function and electrolytes. And also I would decrease the dose of metoprolol to 25 mg by mouth 2 times a day. We'll continue following up with the patient.
[2016-11-24] MEDS: VITAMIN E (DL,TOCOPHERYL ACET) 400 UNIT CAP PO SCH (10:05)
[2016-11-24] MEDS ORDERED: LEVOFLOXACIN 500 MG TAB PO SCH (12:00)
[2016-11-24] MEDS ORDERED: HYDROcodone/APAP 5-325MG 1 EACH TAB PO PRN (12:05)
--- NOTE | 2016-11-24 13:14 | CDI ---
In responding to this query, please exercise your independent professional judgment. The [facility] Coding Staff and Clinical Documentation Specialists appreciate your assistance in clarifying documentation, maintaining compliance with coding guidelines, accurately documenting patients condition and capturing severity of illness. The fact that a question is asked does not imply that any particular answer is desired or expected. Communication forms are a method of clarifying documentation and are not made part of the Legal Health Record. Thank you in advance for your clarification. Last Revision, February 2015 Krzysztof Ybarra [address] [place] [address] Documentation Clarification Form Date: 11/24/2016 1:08:00 PM From: Farhana Julian RN, CCDS Admit Date: 11/21/2016 12:48:00 AM Patient Name: Nany Condon Visit Number: [id number] Dr. Richard Hollins A diagnosis of anemia lacks specificity to accurately reflect your patients severity of condition and clarification is needed. Patient history/risk factors: CKD, acute exacerbation of CHF, Atrial Fib Clinical Indicators: Hemoglobin: 10.3/10.1/10.9/10.7 Hematocrit: 36.3/36/38.4/38.1 Treatment: Labs AM Daily In order to capture the severity of condition, please clarify the type of anemia and etiology if known: Acute blood loss anemia Acute on chronic blood loss anemia Chronic blood loss anemia Iron deficiency anemia Drug induced anemia Anemia due to malignancy Nutritional anemia Anemia of chronic kidney disease Unable to determine Other, please specify Please document in your progress notes and discharge summary in order to capture severity of illness and risk of mortality. Include clinical findings that support your diagnosis. FYI: Press F11 to launch patient chart. Place X here if this finding has no clinical significance, is not applicable or if you are not able to provide any additional documentation. JUDY
--- NOTE | 2016-11-24 13:31 | CDI ---
In responding to this query, please exercise your independent professional judgment. The [facility] Coding Staff and Clinical Documentation Specialists appreciate your assistance in clarifying documentation, maintaining compliance with coding guidelines, accurately documenting patients condition and capturing severity of illness. The fact that a question is asked does not imply that any particular answer is desired or expected. Communication forms are a method of clarifying documentation and are not made part of the Legal Health Record. Thank you in advance for your clarification. Last Revision, February 2015 Krzysztof Ybarra [address] [facility] [place] [address] Documentation Clarification Form Date: 11/24/2016 1:15:00 PM From: Farhana Julian RN, CCDS Admit Date: 11/21/2016 12:48:00 AM Patient Name: Nany Condon Visit Number: [id number] Dr. Gumaro Cedeno History of Atrial fibrillation is documented in the H&P. History/Risk Factors: atrial Fib, atrial flutter, acute on chronic systolic CHF Clinical Indicators: EKG/telemetry: Atrial Fib Treatment: Consults: cardiology Lopressor 25 mg PO BID In your professional opinion, can you please clarify the type of atrial fibrillation, if known? Chronic/Permanent Paroxysmal Persistent Other, please specify Unable to determine Please document in your progress notes and discharge summary in order to capture severity of illness and risk of mortality. Include clinical findings that support your diagnosis. FYI: Press F11 to launch patient chart Place X here if this finding has no clinical significance, is not applicable or if you are not able to provide any additional documentation. JUDY
--- NOTE | 2016-11-24 13:45 | PN ---
DATE OF SERVICE: 11/23/2016 This 86-year-old woman who was admitted with atrial fibrillation and as well as CHF is improving significantly. No chest pain, no palpitations. No fever. On exam, alert and oriented x3. Pulse 85, blood pressure 121/61, respirations 18 , temperature 97.8, pulse ox 95% on 2-L. HEENT: Conjunctivae normal. NECK: No jugular venous distention. CARDIOVASCULAR: S1, S2. RESPIRATORY: Breath sounds diminished at the bases. A few scattered rhonchi and crackles. ABDOMEN: Soft, nontender. LEGS: No edema, no swelling. NERVOUS SYSTEM: No focal deficits. LABS: WBC 7, hemoglobin 10.3, sodium 136. ASSESSMENT: 1. Atrial fibrillation flutter with fast ventricular rate. 2. Congestive heart failure acute exacerbation with acute on chronic systolic dysfunction with ejection fraction 40 to 45%. 3. Anemia. 4. Hyponatremia. 5. Gait dysfunction. RECOMMENDATIONS AND DISCUSSION: I recommend to continue the current medications, continue symptomatic treatment. Taper down the Lasix. Otherwise, increase ambulation. PT, OT evaluation. Possible ECF rehab. We will continue to monitor. Further recommendations to follow. OBINNAD
--- NOTE | 2016-11-24 13:49 | CDI ---
In responding to this query, please exercise your independent professional judgment. The [facility] Coding Staff and Clinical Documentation Specialists appreciate your assistance in clarifying documentation, maintaining compliance with coding guidelines, accurately documenting patients condition and capturing severity of illness. The fact that a question is asked does not imply that any particular answer is desired or expected. Communication forms are a method of clarifying documentation and are not made part of the Legal Health Record. Thank you in advance for your clarification. Last Revision, February 2015 Krzysztof Ybarra [address] [facility] [place] [address] Documentation Clarification Form Date: 11/24/2016 1:31:00 PM From: Farhana Julian RN, CCDS Admit Date: 11/21/2016 12:48:00 AM Patient Name: Nany Condon Visit Number: [id number] Dr. Gumaro Cedeno Atrial Flutter is documented in the Progress Notes and requires further specificity. History/Risk factors: Chronic atrial flutter, history of atrial Fib, acute on chronic systolic CHF, hypotension, renal failure Clinical Indicators: EKG/telemetry: Atrial Fib Treatment: Consults: cardiology Eliquis 2.5 mg PO BID Lopressor 25 mg PO BID In your professional opinion, can you please clarify the type of atrial flutter if known? Typical/Type I Atypical/Type II Other, please specify Unable to determine Please document in your progress notes and discharge summary in order to capture severity of illness and risk of mortality. Include clinical findings that support your diagnosis. FYI: Press F11 to launch patient chart Place X here if this finding has no clinical significance, is not applicable or if you are not able to provide any additional documentation. OBINNAD
[2016-11-24] MEDS: DOXEPIN 25 MG CAP PO SCH (20:28)
[2016-11-24] MEDS: FAMOTIDINE 20 MG TAB PO PRN (20:32)
[2016-11-25 06:12] LABS: Anisocytosis Slight; Basophils % (A) 1 %; CH 26.3; CHCM 28.8; Eosinophils # (A) 0.1 k/uL (0-0.7); Eosinophils % (A) 2 %; HCT 35.8 % (34.0-46.0); HDW 3.15; HGB 10.3 gm/dL (11.4-16.0); Hypochromasia Marked; Luc # (Auto) 0.15; Luc % (Auto) 2; Lymphocytes # (A) 1.1 k/uL (1.0-4.8); Lymphocytes % (A) 15 %; MCH 26.4 pg (25.0-35.0); MCHC 28.8 g/dL (31.0-37.0); MCV 91.7 fL (80.0-100.0); Mean Platelet Volume 9.9; Monocytes # (A) 0.6 k/uL (0-1.0); Monocytes % (A) 8 %; Neutrophils # (A) 5.2 k/uL (1.3-7.7); Neutrophils % (A) 72 %; RBC 3.91 m/uL (3.80-5.40); RDW 18.1 % (11.5-15.5); WBC 7.2 k/uL (3.8-10.6); WBC (Perox) 7.28
[2016-11-25 06:38] LABS: Anion Gap 8 mmol/L; Blood Urea Nitrogen 33 mg/dL (7-17); Calcium 8.7 mg/dL (8.4-10.2); Carbon Dioxide 27 mmol/L (22-30); Chloride 102 mmol/L (98-107); Glucose 97 mg/dL (74-99); Non-African American GFR(MDRD) 52 (>60 ml/min/1.73 sqM); Potassium 3.9 mmol/L (3.5-5.1); Sodium 137 mmol/L (137-145)
[2016-11-25] MEDS: CHOLECALCIFEROL 1,000 UNIT TAB PO SCH (08:16)
[2016-11-25] MEDS: MULTIVITAMINS, THERA 1 EACH TAB PO SCH (08:16)
[2016-11-25] MEDS: APIXABAN 2.5 MG TABLET PO SCH ×2 (08:16→20:15)
[2016-11-25] MEDS: METOPROLOL TARTRATE 25 MG TAB PO SCH ×2 (08:17→20:15)
[2016-11-25] MEDS: ALLOPURINOL 100 MG TAB PO SCH (08:17)
[2016-11-25] MEDS: DOCUSATE 100 MG CAP PO SCH ×2 (08:17→20:15)
[2016-11-25] MEDS: PANTOPRAZOLE 40 MG TABLET PO SCH (08:17)
[2016-11-25] MEDS: FUROSEMIDE 40 MG TAB PO SCH ×2 (08:17→15:15)
[2016-11-25] MEDS: LEVOFLOXACIN 250 MG TAB PO SCH (08:17)
[2016-11-25] MEDS: VITAMIN E (DL,TOCOPHERYL ACET) 400 UNIT CAP PO SCH (08:17)
[2016-11-25] MEDS: POTASSIUM CHLORIDE ER 20 MEQ TAB.ER PO SCH (08:18)
[2016-11-25] MEDS: B COMPLEX-VIT C-VIT E-ZINC 1 EACH TAB PO SCH (08:18)
[2016-11-25] MEDS: FOLIC ACID 1 MG TAB PO SCH (08:18)
[2016-11-25] MEDS: THIAMINE 100 MG TAB PO SCH (08:18)
[2016-11-25] MEDS: HYDROcodone/APAP 5-325MG 1 EACH TAB PO PRN ×3 (08:57→20:55)
--- NOTE | 2016-11-25 09:01 | PN ---
DATE OF SERVICE: 11/24/2016 This 86-year-old woman who was admitted with atrial fibrillation; also had CHF acute exacerbation. The patient will be closely monitored. No chest pain or palpitation. No fever. On exam, alert and oriented x3. Pulse 64, blood pressure 109/68, respirations 18 , temperature 96.9, pulse ox 98% on 2 L. HEENT: Conjunctivae normal. NECK: No jugular venous distention. CARDIOVASCULAR: S1 and S2, muffled RESPIRATORY: Breath sounds diminished at the bases. A few rhonchi. No crackles. ABDOMEN: Soft, nontender. LEGS: No edema, no swelling. NERVOUS SYSTEM: No focal deficits. Labs are hemoglobin 10.7. Creatinine 1.27. ASSESSMENT: 1. Atrial fibrillation flutter with a fast ventricular rate. 2. Congestive heart failure, acute exacerbation with acute on chronic systolic dysfunction. 3. Ejection fraction 40% to 45%. 4. Anemia, anemia of chronic disease, possibly. 5. Hyponatremia. 6. Gait dysfunction. RECOMMENDATIONS AND DISCUSSION: Recommend to continue current medications. Continue with symptomatic treatment. Closely follow with Cardiology and continue to monitor. Prognosis guarded. Further recommendations to follow. MTDD
[2016-11-25] MEDS: NITROFURANTOIN MONOHYD/M-CRYST 100 MG CAP PO SCH ×3 (09:33→09:37)
--- NOTE | 2016-11-25 10:04 | P.PN ---
Subjective Principal diagnosis: Shortness of breath This is a pleasant 86-year-old female patient with a past medical history significant for chronic atrial flutter, congestive heart failure with preserved LV function, hypertension, dyslipidemia, as well as multiple comorbid conditions including CAD and prior stenting, was transferred from [facility] to [facility]. The patient was diagnosed with atrial flutter with uncontrolled heart rate as well as she was in congestive heart failure secondary to diastolic dysfunction. On follow-up with her today, she continues not feeling well and continues to be short of breath. The physical examination showed bilateral crackles in both lung lopez, and also severe pitting edema of the lower extremities. Hemodynamically, she is a slightly hypotensive with a systolic blood pressure below 90. The lower extremities edema seems to be better than yesterday and overall the patient is feeling better. I will continue the current above dose of Lasix IV. Objective - Vital Signs Vital signs: Vital Signs Temp 97 F L 11/25/16 08:00 Pulse 98 11/25/16 08:00 Resp 18 11/25/16 08:00 BP 92/63 11/25/16 08:00 Pulse Ox 95 11/25/16 08:00 Intake & Output 11/24/16 11/25/16 11/25/16 18:59 06:59 18:59 Intake Total 400 0 Output Total 1400 Balance -1000 0 Weight 66.5 kg Intake: Oral 400 0 Output: Urine 1400 Uretheral ([place]) 300 Other: Voiding Method Indwelling Catheter Indwelling Catheter Indwelling Catheter - Constitutional General appearance: Present: no acute distress - Respiratory Respiratory: bilateral: rales - Cardiovascular Rhythm: irregularly irregular Heart sounds: normal: S1, S2 - Labs CBC & Chem 7: 11/25/16 05:43 11/25/16 05:43 Labs: Abnormal Lab Results - Last 24 Hours (Table) 11/25/16 11/25/16 Range/Units 05:43 05:43 Hgb 10.3 L (11.4-16.0) gm/dL MCHC 28.8 L (31.0-37.0) g/dL RDW 18.1 H (11.5-15.5) % BUN 33 H (7-17) mg/dL Assessment and Plan Plan: The shortness of breath is better and lower extremities edema is better as well. I will continue the current dose of Lasix IV. The kidney function seems to be stable.
[2016-11-25] MEDS: FAMOTIDINE 20 MG TAB PO PRN (11:16)
--- NOTE | 2016-11-25 16:36 | P.PN ---
Subjective Date of service 11/25/2016. Personal being dictated for Dr. Hollins. Interval history: This is an 86-year-old female admitted with CHF, atrial fib flutter and multiple other medical issues. Currently sitting up in chair states breathing is unchanged from yesterday. Diuresing well on oral Lasix with 24-hour I&O reflecting a negative fluid balance. Renal function improving , creatinine currently 1. Telemetry atrial fibrillation with controlled ventricular rate. Ambulating small steps with walker with physical therapy. Objective - Vital Signs Vital signs: Vital Signs Temp 97.4 F L 11/25/16 15:18 Pulse 106 H 11/25/16 15:18 Resp 18 11/25/16 15:18 BP 91/60 11/25/16 15:18 Pulse Ox 94 L 11/25/16 15:18 Intake & Output 11/24/16 11/25/16 11/25/16 18:59 06:59 18:59 Intake Total 400 0 Output Total 1400 Balance -1000 0 Weight 66.5 kg Intake: Oral 400 0 Output: Urine 1400 Uretheral ([place]) 300 Other: Voiding Method Indwelling Catheter Indwelling Catheter Indwelling Catheter - Exam PHYSICAL EXAM: VITAL SIGNS: As above GENERAL: [Sitting up in chair, no acute distress] HEENT: [Pupils equal conjunctiva normal.] NECK: [Supple, no JVD, oral mucosa moist] RESPIRATORY EFFORT:[ Normal] LUNGS: [Bilateral bases diminished, no wheezing, no crackles, occasional scattered rhonchi] CARDIOVASCULAR[ irregular, controlled ventricular rate, no murmurs rubs or gallops, mild edema] GI: [Abdomen soft, nontender, positive bowel sounds.] PSYCH: [Alert and oriented -3, mood and affect normal.] NEURO: No focal deficits[] - Labs CBC & Chem 7: 11/25/16 05:43 11/25/16 05:43 Labs: Abnormal Lab Results - Last 24 Hours (Table) 11/25/16 11/25/16 Range/Units 05:43 05:43 Hgb 10.3 L (11.4-16.0) gm/dL MCHC 28.8 L (31.0-37.0) g/dL RDW 18.1 H (11.5-15.5) % BUN 33 H (7-17) mg/dL Assessment and Plan Plan: 1. Atrial fibrillation flutter with rapid ventricular rate, currently controlled. 2. [ Acute on chronic CHF, systolic dysfunction, EF 40-45%]. 3. [ Anemia, of chronic disease]. 4. [ Gait dysfunction, uses walker]. Plan: Continue on current medication regime ,monitoring and symptomatic treatment. Continue diuresing on oral Lasix. Close monitoring of renal function, electrolytes with repeat labs ordered for a.m. Discharge planning in progress for ECF rehab tomorrow. The impression and plan of care has been dictated as directed. : I performed a H&P examination of this patient and discussed the same with the dictator. I agree with the dictator's note. Any additional findings/opinions/ etc. will be noted.
[2016-11-25] MEDS: DOXEPIN 25 MG CAP PO SCH (20:15)
[2016-11-25] MEDS: MELATONIN 3 MG TABLET PO PRN (20:55)
[2016-11-26 05:47] VITALS: TEMP 97.8
[2016-11-26 06:32] LABS: Anisocytosis Slight; Basophils # (A) 0.1 k/uL (0-0.2); Basophils % (A) 1 %; CH 25.6; CHCM 28.5; Eosinophils # (A) 0.1 k/uL (0-0.7); Eosinophils % (A) 2 %; HCT 35.4 % (34.0-46.0); HDW 3.09; HGB 10.5 gm/dL (11.4-16.0); Hypochromasia Marked; Luc # (Auto) 0.19; Luc % (Auto) 3; Lymphocytes # (A) 1.4 k/uL (1.0-4.8); Lymphocytes % (A) 19 %; MCH 26.7 pg (25.0-35.0); MCHC 29.6 g/dL (31.0-37.0); MCV 90.1 fL (80.0-100.0); Mean Platelet Volume 8.8; Monocytes # (A) 0.5 k/uL (0-1.0); Monocytes % (A) 7 %; Neutrophils % (A) 68 %; RBC 3.93 m/uL (3.80-5.40); RDW 17.4 % (11.5-15.5); WBC 7.3 k/uL (3.8-10.6); WBC (Perox) 7.31
[2016-11-26 06:40] LABS: Calcium 9.1 mg/dL (8.4-10.2); Potassium 4.5 mmol/L (3.5-5.1)
[2016-11-26 08:17] VITALS: PULSE 101; RESP 14
[2016-11-26 08:19] VITALS: BP 85/52
[2016-11-26] MEDS: DOCUSATE 100 MG CAP PO SCH (08:32)
[2016-11-26] MEDS: FUROSEMIDE 40 MG TAB PO SCH (08:32)
[2016-11-26] MEDS: HYDROcodone/APAP 5-325MG 1 EACH TAB PO PRN ×2 (08:32→13:38)
[2016-11-26] MEDS: ALLOPURINOL 100 MG TAB PO SCH (08:33)
[2016-11-26] MEDS: POTASSIUM CHLORIDE ER 20 MEQ TAB.ER PO SCH (08:33)
[2016-11-26] MEDS: APIXABAN 2.5 MG TABLET PO SCH (08:33)
[2016-11-26] MEDS: PANTOPRAZOLE 40 MG TABLET PO SCH (08:33)
[2016-11-26] MEDS: LEVOFLOXACIN 250 MG TAB PO SCH (08:33)
[2016-11-26] MEDS: VITAMIN E (DL,TOCOPHERYL ACET) 400 UNIT CAP PO SCH (08:33)
[2016-11-26] MEDS: CHOLECALCIFEROL 1,000 UNIT TAB PO SCH (08:33)
[2016-11-26] MEDS: METOPROLOL TARTRATE 25 MG TAB PO SCH (08:33)
--- NOTE | 2016-11-26 11:27 | P.DS ---
Providers Date of admission: 11/21/16 00:48 Attending physician: Trini Fuentes Consults: 11/21/16 02:05 Consult Physician Routine Consulting Provider: Jv Padron Consult Reason/Comments: pulmonary edema Do you want consulting provider notified?: Yes, Notify in am Primary care physician: Stated None Hospital Course: This 86-year-old woman was admitted with the atrial fibrillation flutter with fast ventricular rate and evidence of CHF acute exacerbation. Patient was treated with Lasix and other medications. Cardiology saw the patient. Patient improved significantly. Patient is generally weak. PTOT was consulted. Patient be transferred to [facility]. Total time taken 35 minutes. On exam vitals stable S1-S2 normal cardio respiratory system few rhonchi. Abdomen soft nontender nontender no system no focal deficit. Final diagnosis 1. Atrial flutter fibrillation with rapid ventricular rate controlled 2. CHF acute exacerbation with acute on chronic systolic dysfunction ejection fraction 40-45% 3. Anemia of chronic disease 4. Gait dysfunction Plan - Discharge Summary New Discharge Prescriptions: New Furosemide [Lasix] 40 mg PO BID@0900,1600 tab Levofloxacin [Levaquin] 250 mg PO DAILY #5 tab Thiamine [Vitamin B-1] 100 mg PO DAILY@1200 tab Continue Doxepin HCl [SINEquan] 50 mg PO HS Nitroglycerin Sl Tabs [Nitrostat] 0.4 mg SUBLINGUAL Q5M PRN PRN Reason: Chest Pain Folic Acid 1 mg PO DAILY Cholecalciferol [Vitamin D3] 1,000 unit PO DAILY Pantoprazole [Protonix] 40 mg PO DAILY #30 tablet. Apixaban [Eliquis] 2.5 mg PO BID tab Docusate [Colace] 100 mg PO BID #60 cap Vitamin E (Dl,Tocopheryl Acet) [Vitamin E] 400 unit PO DAILY cap Potassium Chloride [Klor-Con 20] 20 meq PO DAILY Multivit-Min/FA/Lycopen/Lutein [Centrum Silver Tablet] 1 tab PO DAILY Metoprolol Tartrate [Lopressor] 25 mg PO BID B Complex-Vit C-Vit E-Zinc [Z-Bec] 1 tab PO DAILY Allopurinol [Zyloprim] 100 mg PO DAILY Melatonin 3 mg PO HS PRN PRN Reason: Insomnia HYDROcodone/APAP 5-325MG [Hinckley 5-325] 1 tab PO Q6HR PRN #20 PRN Reason: Pain Discontinued Ranitidine HCl [Zantac] 150 mg PO HS PRN PRN Reason: Gi Upset Bumetanide [Bumetanide] 2 mg PO DAILY Nitrofurantoin Monohyd/M-Cryst [Macrobid] 100 mg PO Q12HR Discharge Medication List Doxepin HCl [SINEquan] 50 mg PO HS 11/04/14 [History] Nitroglycerin Sl Tabs [Nitrostat] 0.4 mg SUBLINGUAL Q5M PRN 11/04/14 [History] Cholecalciferol [Vitamin D3] 1,000 unit PO DAILY 07/07/16 [History] Folic Acid 1 mg PO DAILY 07/07/16 [History] Pantoprazole [Protonix] 40 mg PO DAILY #30 tablet. 07/09/16 [Rx] Apixaban [Eliquis] 2.5 mg PO BID tab 10/09/16 [Rx] Docusate [Colace] 100 mg PO BID #60 cap 10/09/16 [Rx] Vitamin E (Dl,Tocopheryl Acet) [Vitamin E] 400 unit PO DAILY cap 10/09/16 [Rx] Allopurinol [Zyloprim] 100 mg PO DAILY 11/21/16 [History] B Complex-Vit C-Vit E-Zinc [Z-Bec] 1 tab PO DAILY 11/21/16 [History] Melatonin 3 mg PO HS PRN 11/21/16 [History] Metoprolol Tartrate [Lopressor] 25 mg PO BID 11/21/16 [History] Multivit-Min/FA/Lycopen/Lutein [Centrum Silver Tablet] 1 tab PO DAILY 11/21/16 [ History] Potassium Chloride [Klor-Con 20] 20 meq PO DAILY 11/21/16 [History] Furosemide [Lasix] 40 mg PO BID@0900,1600 tab 11/26/16 [Rx] HYDROcodone/APAP 5-325MG [Hinckley 5-325] 1 tab PO Q6HR PRN #20 11/26/16 [Rx] Levofloxacin [Levaquin] 250 mg PO DAILY #5 tab 11/26/16 [Rx] Thiamine [Vitamin B-1] 100 mg PO DAILY@1200 tab 11/26/16 [Rx] Follow up Appointment(s)/Referral(s): Giovani Sheldon MD [REFERRING] - 1 Week (after dc from ECF ) Akhil Edmonds MD [REFERRING] - 3 Days (while at ECF) Activity/Diet/Wound Care/Special Instructions: [facility] if OK with cardiology. Comfirm Cardiology F/U apt/ Prior to dc. Diet: Cardiac Activity: As tolerated cbc,bmp in 3days Discharge Disposition: TRANSFER TO SNF/ECF
[2016-11-26] MEDS: FOLIC ACID 1 MG TAB PO SCH (12:53)
[2016-11-26] MEDS: MULTIVITAMINS, THERA 1 EACH TAB PO SCH (12:53)
[2016-11-26] MEDS: B COMPLEX-VIT C-VIT E-ZINC 1 EACH TAB PO SCH (12:53)
[2016-11-26] MEDS: THIAMINE 100 MG TAB PO SCH (12:53)
--- NOTE | 2016-11-26 13:46 | P.PN ---
Subjective This is a pleasant 86-year-old female patient with a past medical history significant for chronic atrial fibrillation , congestive heart failure with preserved LV function, hypertension, dyslipidemia, as well as multiple comorbid conditions including CAD and prior stenting, [facility] On presentation patient was found to be in atrial fibrillation with rapid ventricular response and was also found to be in congestive heart failure. She's been diuresing well overall. She continues to have fine crackles to the bases as well as some peripheral edema which appeared to be chronic for the patient. Overall her weight is down another 4 kg today. BUN 37, creatinine 1.1. Objective - Vital Signs Vital signs: Vital Signs Temp 97.8 F 11/26/16 04:00 Pulse 101 H 11/26/16 08:00 Resp 14 11/26/16 08:00 BP 85/52 11/26/16 08:00 Pulse Ox 94 L 11/26/16 04:00 Intake & Output 11/25/16 11/26/16 11/26/16 18:59 06:59 18:59 Intake Total 600 598 Output Total 800 1200 500 Balance -200 -1200 98 Weight 62.4 kg 62.4 kg Intake: Oral 600 598 Output: Urine 800 1200 500 Other: Voiding Method Indwelling Catheter Indwelling Catheter Indwelling Catheter # Bowel Movements 0 - Exam PHYSICAL EXAMINATION: HEENT: Head is atraumatic, normocephalic. Pupils equal, round. Neck is supple. There is no elevated jugular venous pressure. HEART EXAMINATION: Heart S1 and S2 irregularly irregular systolic murmur is heard CHEST EXAMINATION: Lungs reveal fine crackles to bilateral bases ABDOMEN: Soft, nontender. Bowel sounds are heard. No organomegaly noted. EXTREMITIES: 2+ peripheral pulses with 1+ evidence of peripheral edema and no calf tenderness noted. NEUROLOGIC [patient is awake, alert and oriented -3.] . - Labs CBC & Chem 7: 11/26/16 05:44 11/26/16 05:44 Labs: Abnormal Lab Results - Last 24 Hours (Table) 11/26/16 11/26/16 Range/Units 05:44 05:44 Hgb 10.5 L (11.4-16.0) gm/dL MCHC 29.6 L (31.0-37.0) g/dL RDW 17.4 H (11.5-15.5) % Carbon Dioxide 31 H (22-30) mmol/L BUN 37 H (7-17) mg/dL Creatinine 1.10 H (0.52-1.04) mg/dL Assessment and Plan (1) Chronic a-fib Status: Acute (2) Systolic CHF, acute on chronic Status: Acute (3) Anemia Status: Acute Plan: From cardiology's perspective, we'll discontinue the IV Lasix and put the patient back on oral diuretics. She may be able to be discharged home from our perspective to follow-up with her general duty nurse as an outpatient. DNP note has been reviewed, I agree with a documented findings and plan of care. Patient was seen and examined.
== END 2016-11-26 13:50 | DRG 308 ==
LOC: 6SEL 11-21 00:48
PROVIDERS: ADMIT Internal Medicine; ATTEND Internal Medicine
DX: I48.2 Chronic atrial fibrillation (principal); I50.23 Acute on chronic systolic (congestive) heart failure; I95.9 Hypotension, unspecified; I13.0 Hypertensive heart and chronic kidney disease with heart failure and stage 1 through stage 4 chronic kidney disease, or unspecified chronic kidney disease; D63.8 Anemia in other chronic diseases classified elsewhere; M06.9 Rheumatoid arthritis, unspecified; E87.1 Hypo-osmolality and hyponatremia; N18.9 Chronic kidney disease, unspecified; I25.10 Atherosclerotic heart disease of native coronary artery without angina pectoris; I25.2 Old myocardial infarction; E78.5 Hyperlipidemia, unspecified; R53.1 Weakness; K57.90 Diverticulosis of intestine, part unspecified, without perforation or abscess without bleeding; R26.9 Unspecified abnormalities of gait and mobility; H91.93 Unspecified hearing loss, bilateral; K21.9 Gastro-esophageal reflux disease without esophagitis; Z95.5 Presence of coronary angioplasty implant and graft; Z86.711 Personal history of pulmonary embolism; Z87.891 Personal history of nicotine dependence; Z82.49 Family history of ischemic heart disease and other diseases of the circulatory system; Z79.899 Other long term (current) drug therapy; Z79.01 Long term (current) use of anticoagulants; Z83.3 Family history of diabetes mellitus; Z86.73 Personal history of transient ischemic attack (TIA), and cerebral infarction without residual deficits; Z80.0 Family history of malignant neoplasm of digestive organs; Z86.79 Personal history of other diseases of the circulatory system; Z88.0 Allergy status to penicillin; Z90.49 Acquired absence of other specified parts of digestive tract; Z90.710 Acquired absence of both cervix and uterus; Z98.42 Cataract extraction status, left eye; Z98.41 Cataract extraction status, right eye; Z87.19 Personal history of other diseases of the digestive system; Z79.2 Long term (current) use of antibiotics; Z79.891 Long term (current) use of opiate analgesic; Z71.3 Dietary counseling and surveillance
CPT/HCPCS: 71010; 71020; 80048; 83735; 85025; 85027; 94760